=== PATIENT | male | born 1975 | race Caucasian/White ===

== ENCOUNTER 2019-08-03 05:30 | Day surgery (SDC) | payer OTHER, SELFPAY ==
[2019-06-28 07:56] VITALS: BMI 26.2
[2019-08-03] VITALS (7 sets, daily range): BP systolic 129–144; BP diastolic 7–91; PULSE 59–81; RESP 16–18; TEMP 36.1–36.2; O2SAT 95–100; BMI 25.9
[2019-08-03] MEDS: Lactated Ringers 1,000 ML 100 ML IV (06:36)
--- NOTE | 2019-08-03 07:08 | HP.PCM_ITS ---
Problem List (1) Right inguinal hernia Status: Acute History of Present Illness Date of Admission: 08/03/19 The patient is a 43 year old M with bulging in the right groin. Patient was found to have a right inguinal hernia. Patient reports no pain on the left side. Past Medical History Past Medical History (Chronic Problems): Chronic Problems (Last Updated 06/28/19 @ 07:54 by Stephanie Jett) Back problem (Chronic) Allergies (Chronic) Medical History: Medical History (Last Updated 06/28/19 @ 07:54 by Stephanie Jett) Back problem (Chronic) M53.9 Allergies (Chronic) T78.40XA Right inguinal hernia K40.90 Allergies No Known Allergies Allergy (Verified 07/27/19 11:00) Home Medications: Ambulatory Orders Medication Instructions Recorded NK 06/20/19 Surgical History: Surgical History (Last Updated 06/20/19 @ 16:56 by Lani Cabello) No history of previous surgery Surgical History: no surgical history Smoking Status: Never smoker Tobacco Use: Non-smoker - *Family History Maternal Family History: Family History (Last Updated 06/28/19 @ 07:54 by Stephanie Jett) Mother Asthma Cancer Father High cholesterol Review of Systems Constitutional: Denies: Anorexia, Chills, Fever HEENT: Denies: Difficulty Swallowing Cardiovascular: Denies: Chest Pain Respiratory: Denies: Cough, Shortness of Breath Gastrointestinal: Reports: - - Right groin bulging. Denies: Abdominal Pain, Nausea, Vomiting Skin: Denies: Dryness, Jaundice Neurological: Denies: Balance problems Psychiatric: Denies: Anxiety Hematologic/ Lymphatic: Denies: Anemia VTE Information - Inpt Only VTE Present on Admission: No VTE Mechan Device Prophylaxis: SCD's Patient Problems: Active and Suspected Problems (Last Updated 06/28/19 @ 07:54 by Stephanie Jett) Right inguinal hernia (Acute) - Physical Exam General: Alert, Oriented x3 HEENT: Atraumatic Neck: No JVD Lungs: Normal air movement Cardiovascular: Regular rate, Regular Rhythm Abdomen: Soft, Non Tender, Non-Distended, - - Reducible hernia in the right inguinal region Extremities: No clubbing Musculoskeletal: No Muscle Wasting Neurological: Cranial nerves II-XII grossly intact Psych/Mental Status: Normal Affect Vital Signs Temp Pulse Resp BP Pulse Ox 97 F L 59 L 16 130/7 H 100 10/10/19 05:52 08/03/19 05:52 08/03/19 05:52 08/03/19 05:52 08/03/19 05:52 Oxygen Delivery Method Room Air Weight: 197 lb 1.492 oz Body Mass Index (BMI) 25.9 Assessment/Plan All Active Problems (Last Updated 06/28/19 @ 07:54 by Stephanie Jett) Right inguinal hernia (Acute) 43-year-old male with right inguinal hernia The patient does have a right inguinal hernia. I discussed hernia repair with him in detail. I discussed laparoscopic robot-assisted hernia repair as well as open hernia repair. The patient would like to proceed with robotic inguinal hernia repair. I discussed the procedure in detail as well as the risks including not limited to bleeding, infection, chronic groin pain, spermatic cord injury, hernia recurrence. I also discussed repairing the contralateral side if there is a hernia present. The patient would like this done if necessary. Nash Oconnor MD Pager: [facility] [address] [place] [address] [place] [address] Office:
[2019-08-03] MEDS: Cefazolin 2 GM in 0.9% Normal Saline 100 ML IV (07:33)
[2019-08-03] MEDS: Bupivacaine 0.25% 30 ML Vial (09:30)
--- NOTE | 2019-08-03 09:53 | PCM.OPRPT ---
Problem List (1) Right inguinal hernia Status: Acute Report of Operation Date of Procedure: 08/03/19 Pre-Operative Diagnosis: Right inguinal hernia Post-Operative Diagnosis: Bilateral inguinal hernias Surgery/Procedure Performed:: Robotic assisted laparoscopic bilateral inguinal hernia repair with mesh Description of Surgical Findings:: Bilateral direct hernias Description of Procedure: Patient was brought back to the operating room and general anesthesia was induced. Abdomen was prepped and draped in usual sterile fashion. An incision was made superior to the umbilicus and the fascia was grasped and elevated. Veress needle was placed into the abdomen and a drop test was performed. The abdomen was then insufflated to 15 mmHg. The camera was placed in the abdomen. The patient appeared to have a right and left direct inguinal hernia. Next an 8 mm port was placed under direct visualization in the right lateral sidewall and left lateral sidewall. The patient was then placed in steep Trendelenburg position and the robot was docked. An incision was made in the peritoneum on the right groin and the dissection was carried inferiorly until the hernia was identified. The hernia contents were reduced. At that point there was a small burst of fluid. There was concern for possible contained diverticulum of the bladder. At this point a Figueroa catheter was placed in the bladder was inflated full of fluid. There is no fluid from this hernia content. Next the Figueroa catheter was placed to gravity and the bladder was drained. A pro-machine clothing replacer mesh was placed in the right groin and unfolded over the hernia defect. The peritoneum was reapproximated using a running 3-0V lock suture. There was a small defect in the peritoneum which was closed with a [id number] 4-0 Vicryl suture. The mesh was completely covered at the end of this portion of the procedure. Next attention was paid to the left side where there was another direct inguinal hernia. The peritoneum was scored with electrocautery and dissected inferiorly until the hernia sac was reduced. Next a piece of pro-machine clothing replacer mesh was unfolded and placed into the left groin to cover the hernia defect. The peritoneum was reapproximated using a running 3-0V lock suture. Next both groins were inspected and the peritoneum was completely covering the mesh bilaterally. The instruments were removed and the robot was undocked. The ports were removed and the air was allowed to escape from the abdomen. The incisions were anesthetized with Marcaine and closed with interrupted 4-0 Monocryl suture as well as Steri-Strips and bandages. Both testicles were checked at the end the case and were both present in the scrotum. Patient tolerated procedure well was brought to PACU in stable condition. Figueroa was removed at the end of the case. Grafts/Implants Used: Pro-machine clothing replacer mesh - Admit VTE Documentation VTE Present on Admission: No VTE Mechan Device Prophylaxis: SCD's
--- NOTE | 2019-08-03 09:54 | DCINST_ITS ---
Discharge Diet: Light diet - advance as tolerated Discharge Activity: Return to Normal Activity, May Not Drive - for 2-3 days or while taking narcotic pain meds., May Shower - with the bandage in place 1-2 days after surgery. Lifting Restrictions: 20 pounds for 4 weeks. Additional Activity Instructions:: Climbing stairs is fine, walking is encouraged. Sitting in bed may be uncomfortable. Sitting up using your lateral muscles (sitting up sideways) is usually more comfortable. Do not drive, work heavy equipment of sign legal documents for 24 hours. If your hernia repair was an ingunial repair, you may have scrotal swelling, an ice pack and/or athletic support can provide more comfort. Pain medications may cause nausea, you should typically eat light foods as you take your pain medications. Pain medications may also cause constipation. If you have difficulty with this, discuss with your doctor. Call your doctor if your incision/area has: Continuous Slow Oozing, Sudden Increased Bleeding, Increased Pain/ Swelling, Increased Redness, Foul Smelling Discharge Call your doctor if you observe: Fever of 101 or Higher Suture Line Care: Avoid Pulling/Pushing, Avoid Pinching/Bending Change Dressing in (Days):: 3 - Leave steri-strips for 1 week. May protect with a guaze bandaid. Cleanse incision/area with: Keep Dressing Clean & Dry Allergies/Adverse Reactions: Allergies No Known Allergies Allergy (Verified 07/27/19 11:00) Medications to take at Discharge Docusate Sodium [Colace] 100 mg PO BID 5 Days #10 cap 08/03/19 Oxycodone HCl/Acetaminophen [Percocet 5/325] 1 - 2 tab PO Q4H PRN PRN 4 Days #20 tab 08/03/19 The following prescriptions were given: Docusate Sodium [Colace] 100 mg PO BID 5 Days #10 cap Transmission Status: Sent to [facility] Oxycodone HCl/Acetaminophen [Percocet 5/325] 1 - 2 tab PO Q4H PRN PRN 4 Days #20 tab PRN Reason: Pain Transmission Status: Sent to [facility] Primary Care Physician: Rosendo Aviles DO [Primary Care Provider] - Test Results: Test results from this visit will be discussed in further detail at your follow- up appointment, if applicable. Please Follow Up With: Nash Oconnor MD When: Please call to schedule 2 week follow up appointment. [phone]
== END 2019-08-03 12:45 | disposition home or self-care (01) ==
LOC: SDC 05:34 → AC 05:36
PROVIDERS: Family Provider Family Medicine; PCP Family Medicine; Referring Provider Surgery; Visit Provider Surgery
PROC: (CPT 49650; principal; 2019-08-03 07:10)
DX: K40.20 Bilateral inguinal hernia, without obstruction or gangrene, not specified as recurrent (principal)
CPT/HCPCS: 00840; 49650; J7120; J2405

== ENCOUNTER → 2020-10-14 10:09 | Outpatient (CLI) | payer OTHER, SELFPAY ==
[2020-10-14 08:49] VITALS: BMI 22.3
[2020-10-14 12:37] LABS: Erythrocyte Sedimentation Rate 14 mm/hr (0-15)
[2020-10-14 12:38] LABS: Absolute Lymphocyte Count 1.25 X10^3/uL (0.83-4.51); Absolute Neutrophil Count 6.1 X10^3/uL (2.0-7.7); Basophil# 0.06 X10^3/uL; Basophil% 0.8 % (0-1); Eosinophil# 0.12 X10^3/uL; Eosinophils% 1.5 % (0-5); Hematocrit 45.5 % (40-54); Lymphocyte # 1.25 X10^3/ul (4.0); Lymphocyte % 15.8 % (19-41); Mean Corpuscular Hgb 28.3 pg (27.0-32.0); Mean Corpuscular Volume 85.8 fL (80-94); Mean Platelet Vol. 10.4 fl (6.2-12.0); Monocyte% 5.1 % (0-10); NRBC Flagged by Analyzer 0 % (0-5); Neutrophil # 6.06 X10^3/uL (2.7-7.7); Neutrophil % 76.5 % (47-70); Platelet Count 285 K/mm3 (150-450); RBC Distribution Width CV 15.4 % (11.6-14.6); RBC Distribution Width SD 44.3 fl (35.1-43.9); White Blood Count 7.9 K/mm3 (4.4-11.0)
[2020-10-14 13:01] LABS: AST(SGOT) 12 U/L (15-37); Alanine Aminotransfer ALT/SGPT 21 U/L (16-61); Albumin, Serum 3.7 g/dL (3.2-5.0); Alkaline Phosphatase 76 U/L (45-117); Anion Gap 6 (5-15); BUN 14 mg/dL (7-18); BUN/Creat Ratio 14.9 RATIO (10-20); Calcium,Total 8.9 mg/dL (8.5-10.1); Chloride 104 mmol/L (98-107); Creatinine, Serum 0.94 mg/dL (0.70-1.30); EST Glomerular Filtration Rate 93 mL/min (>60); Est Glom Filt Rate - Afr Amer 112 mL/min (>60); Globulin 3.8 g/dL (2.2-4.2); Glucose 93 mg/dL (74-106); Potassium 4.5 mmol/L (3.5-5.1); Protein, Total 7.5 g/dL (6.4-8.2); Sodium Level 138 mmol/L (136-145)
[2020-10-14 14:19] LABS: HIV - WCH Non-Reactive (Nonreactive)
[2020-10-14 17:42] LABS: Rheumatoid Factor < 10.0 IU/mL (<15)
[2020-10-15 14:26] LABS: ANTINUCLEAR ANTIBODIES DIRECT Negative (Negative)
[2020-10-17 02:22] LABS: Rapid Plasmin Reagin (RPR) NONREACTIVE (NONREACTIVE)
[2020-10-17 08:27] LABS: CCP IgG Antibodies 4 units (0-19)
== END ==
PROVIDERS: PCP Family Medicine; Visit Provider Internal Medicine
DX: M19.90 Unspecified osteoarthritis, unspecified site (principal); Z11.3 Encounter for screening for infections with a predominantly sexual mode of transmission
CPT/HCPCS: 36415; 80053; 85025; 85652; 86038; 86140; 86200; 86225; 86235; 86431; 86592; 86703

== ENCOUNTER → 2023-02-25 | Outpatient (CLI) | payer OTHER, SELFPAY ==
--- NOTE | 2023-02-25 10:58 | MRI_ITS ---
STUDY: MRA OF THE HEAD WITHOUT CONTRAST REASON FOR EXAM: Male, 47 years old. severe headaches TECHNIQUE: 3-D [id number] (TOF) imaging was performed with MIPs. The study was performed unenhanced. COMPARISON: None. FINDINGS: Normal bilateral petrous carotid arteries. Normal right cavernous carotid artery with a normal supraclinoid bifurcation. Normal left cavernous carotid artery with a normal supraclinoid bifurcation. Normal right A1 segments of the anterior cerebral artery. Normal left A1 segments of the anterior cerebral artery. Anterior communicating artery not visualized consistent with normal variant). Normal bilateral A2 segments of the anterior cerebral arteries. Normal right M1 and M2 segments of the middle cerebral arteries, with a normal M1 bifurcation. Normal left M1 and M2 segments of the middle cerebral arteries, with a normal M1 bifurcation. Right posterior communicating artery not visualized consistent with normal variant). Hypoplastic left posterior communicating artery consistent with normal variant. Normal bilateral vertebral arteries. Normal basilar artery with a normal basilar bifurcation. The visualized bilateral superior cerebellar (SCA) arteries are normal. Normal bilateral P1, P2 and visualized P3 segments of the posterior cerebral arteries. There is no demonstrated aneurysm of the [place]. There is no major vessel occlusion or hemodynamically significant stenosis. . MRI/MRA Head ONLY without Contrast IMPRESSION: Normal MRA of the head Electronically Signed: James Koch MD at 18:00 EDT ,
== END | disposition home or self-care (01) ==
PROVIDERS: PCP Family Medicine; Referring Provider Family Medicine; Visit Provider Family Medicine
DX: R51.9 Headache, unspecified (principal)
CPT/HCPCS: 70544

== ENCOUNTER → 2025-07-07 | Outpatient (CLI) | payer OTHER, SELFPAY ==
--- OUTSIDE RECORDS SUMMARY | 2025-07-07 09:00 | XMS RPT_ITS | CCD ---
Author Organization [facility] Care Team Providers Care Pv Design And Installation Technician Name Role Phone NACHO TASNEEM SANTO Attending Unavailable BROWN, TRACY R Primary Care Unavailable Brown, Tracy R Primary Care Provider [phone] Brown, Tracy R Attending Unavailable Brown, Tracy R Referring Unavailable Brown, Tracy R Primary Care Unavailable Brown, Tracy R Referring Unavailable Brown, Tracy R Primary Care Unavailable Brown, Tracy R Attending Unavailable Brown, Tracy R Primary Care Provider [phone] RAMSEY HESS Attending Unavailable CYNDI HESSI Referring Unavailable BROWN, TRACY Primary Care Unavailable RAMSEY HESS Attending Unavailable BROWN, TRACY Primary Care Unavailable BROWN DO, TRACY R Primary Care Physician GAYLA GUAMAN MD Attending Unavailable BROWN DO, TRACY R Primary Care Unavailable Gayla Guaman MD Primary Care Provider [phone] GAYLA GUAMAN Primary Care Unavailable DEBBIE MARSHALL Referring Unavailable DEBBIE MARSHALL Attending Unavailable Regine Beck Attending Unavailable GAYLA GUAMAN Referring Unavailable GAYLA GUAMAN Primary Care Unavailable Medications Completed/Discontinued Medications Medication Drug Class(es) Dates Sig (Normalized) Sig (Original) gadobutrol (Gadavist) injection 9 mL (1 source) Start: 04-02-2023 End: 04-02-2023 gadobutrol (Gadavist) injection 9 mL polyethylene glycol 3350 119459 mg / potassium chloride 2970 mg / sodium bicarbonate 6740 mg / sodium chloride 5860 mg / sodium sulfate 49093 mg powder for oral solution (1 source) Osmotic Laxative Start: 08-27-2023 End: 08-27-2023 peg 3350-Electrolytes (GOLYTELY) 236-22.74-6.74 -5.86 gram suspension Take 4,000 mL by mouth one time only for 1 dose. 1 Each 0 08/27/2023 08/27/2023 Comment on above: Take 4,000 mL by evan th one time only for 1 dose. Problems Problem Classification Problem Date Documented Da te Episodic/Chronic Headache; including migraine (3 sources) Other headache syndrome; Translations: [Headache] Onset: 02-17-2023 Episodic Headache; including migraine (3 sources) Headache; including migraine; Translations: [Headache, unspecified] Onset: 03-02-2023 Other screening for suspected conditions (not mental disorders or infectious disease) (6 sources) Patient encounter status; Translations: [Encounter for screening for malignant neoplasm of colon] Onset: 09-27-2023 08-27-2023 Episodic Results Test Name Value Interpretation Reference Range [facility]OS[facility] Colonoscopy[facility] 09[facility]-2023 Colonoscopy [facility] Gastrointestinal Endoscopy Patient Name: Belkis Mccabe Procedure Date: 09/27/2023 12:35 PM Date of : 1975 Admit Type: Outpatient Age: 48 Gender: Male Note Status: Finalized Procedure: Colonoscopy Indications: Screening for colorectal malignant neoplasm Providers: Debbie Marshall MD Patient Profile: Refer to note in patient chart for documentation of history and physical. Last Colonoscopy: none. The patient's first colonoscopy is today. Referring Physician: Debbie Marshall MD (Referring MD) Medicines: Midazolam 8 mg IV, Fentanyl 100 micrograms IV, Diphenhydramine 50 mg IV Complications: No immediate complications. Requesting Provider: Procedure: Pre-Anesthesia Assessment: - Prior to the procedure, a History and Physical was performed, and patient medications and allergies were reviewed. The patient is competent. The risks and benefits of the procedure and the sedation options and risks were discussed with the patient. All questions were answered and informed consent was obtained. Patient identification and proposed procedure were verified by the physician in the pre-procedure area. Mental Status Examination: alert and oriented. Airway Examination: normal oropharyngeal airway and neck mobility. Respiratory Examination: clear to auscultation. CV Examination: normal. Prophylactic Antibiotics: The patient does not require prophylactic antibiotics. Prior Anticoagulants: The patient has taken no anticoagulant or antiplatelet agents. ASA Grade Assessment: II - A patient with mild systemic disease. After reviewing the risks and benefits, the patient was deemed in satisfactory condition to undergo the procedure. The anesthesia plan was to use moderate sedation / analgesia (conscious sedation). Immediately prior to administration of medications, the patient was re-assessed for adequacy to receive sedatives. The heart rate, respiratory rate, oxygen saturations, blood pressure, adequacy of pulmonary ventilation, and response to care were monitored throughout the procedure. The physical status of the patient was re-assessed after the procedure. After I obtained informed consent, the scope was passed under direct vision. Throughout the procedure, the patient's blood pressure, pulse, and oxygen saturations were monitored continuously. The Colonoscope was introduced through the anus and advanced to the cecum, identified by the appendiceal orifice, ileocecal valve and palpation. The colonoscopy was performed without difficulty. The patient tolerated the procedure well. The quality of the bowel preparation was suboptimal. There was still retained fecal material which required lavage and aspiration to visualize the correa adequately. This was done, but took some time, however, the correa were visualized adequately. The cecum and the rectum were photographed. Moderate Sedation: The administration of moderate sedation was initiated at 12:46 PM. Moderate (conscious) sedation was personally administered by the endoscopist. The following parameters were monitored: oxygen saturation, heart rate, blood pressure, respiratory rate, EKG, adequacy of pulmonary ventilation, and response to care. Total physician intraservice time was 26 minutes. Findings: The perianal and digital rectal examinations were normal. Non-bleeding internal hemorrhoids were found. Impression: - Non-bleeding internal hemorrhoids. - No specimens collected. Recommendation: - Repeat colonoscopy in 10 years for screening purposes. - Return to primary care physician PRN. - Patient has a contact number available for emergencies. The signs and symptoms of potential delayed complications were discussed with the patient. Return to normal activities tomorrow. Written discharge instructions were provided to the patient. - Continue present medications. - Resume previous diet. Procedure Code(s): --- Professional --- G0121, Colorectal cancer screening; colonoscopy on individual not meeting criteria for high risk 74959, Moderate sedation; each additional 15 minutes intraservice time G0500, Moderate sedation services provided by the same physician or other qualified health manager long term care performing a gastrointestinal endoscopic service that sedation supports, requiring the presence of an independent trained observer to assist in the monitoring of the patient's level of consciousness and physiological status; initial 15 minutes of intra-service time; patient age 5 years or older (additional time may be reported with 23817, as appropriate) Diagnosis Code(s): --- Professional --- K64.8, Other hemorrhoids Z12.11, Encounter for screening for malignant neoplasm of colon CPT copyright 2020 [employer]. All rights reserved. The codes documented in this report are preliminary and upon black and white printer operator review may be revised to meet curre (more content not included)... Normal [facility] HISTORY PHYSICALon HISTORY PHYSICAL HNO ID: [id number] Author: Debbie Marshall MD Service: General Surgery Author Type: Physician Type: HANDP Filed: 09/27/2023 12:04 PM Note Text: HISTORY AND PHYSICAL Belkis Mccabe 1975 REFERRING PHYSICIAN: Gayla Guaman MD CHIEF COMPLAINT: Consult (colonoscopy) HPI: The patient is a 47 year old male referred for endoscopy. Belkis notes no colon complaints. Patient denies any change in bowel habits, weight changes, blood in stools, black tarry stools or abdominal pain. Denies family history of colon issues. The patient notes no upper GI complaints. Belkis has not undergone prior endoscopy. PAST MEDICAL HISTORY PAST MEDICAL HISTORY Diagnosis Date Back pain Headaches PAST SURGICAL HISTORY PAST SURGICAL HISTORY Procedure Laterality Date INGUINAL HERNIA REPAIR HX Right [facility] PAST SURGICAL HISTORY OF Left knee CURRENT MEDICATIONS No current outpatient medications on file. No current facility-administere d medications for this visit. ALLERGIES: Patient has no known allergies. PERSONAL HISTORY: SOCIAL HISTORY Social History Tobacco Use Smoking status: Never Smokeless tobacco: Never Vaping Use Vaping Use: Never used Substance Use Topics Alcohol use: Never Drug use: Never FAMILY HISTORY: FAMILY HISTORY FAMILY HISTORY Problem Relation Age of Onset Asthma Mother other (cancer multiple melanoma) Mother Hyperlipidemia Father REVIEW OF SYMPTOMS: The review of systems data was entered by the nurse and reviewed by pr Nursing Notes: Zoey Mancilla LPN 08/27/2023 3:09 PM Signed REVIEW OF SYSTEMS: General: The patient denies fatigue, denies weight loss, denies weight gain, denies feeling hot, and denies feelings of cold. Eyes: The patient denies glaucoma, denies eye injury/surgery, wears glasses or contacts. Ear/Nose/Throat: The patient denies allergies, denies hayfever, denies ear infections, and denies bloody noses. Cardiovascular: The patient denies chest pain, denies heart disease, denies high blood pressure,denies cardiac stent, denies prior heart attack, denies irregular heart beat, denies high cholesterol, denies poor circulation, denies heart failure, other cardiac issues, denies claudication, denies cold feet, denies peripheral arterial stent. Respiratory: The patient denies tuberculosis, denies pneumonia, denies frequent cough, denies pulmonary embolism, denies shortness of breath, and denies coughing up blood. Gastrointestinal: The patient denies difficulty swallowing, denies acid reflux, denies ulcers, denies vomiting, denies jaundice/hepatitis, denies gallbladder problems, denies black or tarry stools, denies hemorrhoids, denies bleeding from rectum, denies diverticulitis, denies constipation, denies diarrhea, denies loss of stool control, and denies hernias. Kidney/Bladder: The patient denies kidney stones, denies urine infections, and denies bloody urine. Skin: The patient denies a history of skin cancer, denies bleeding/changing moles, and denies a history of skin rash. Neurologic: The patient denies a history of epilepsy/convulsions , notes headaches, denies head/spinal injuries, and denies stroke/TIA. Psychiatric: The patient denies psychiatric medications, denies depression, and denies voices, denies substance abuse. Endocrine: The patient denies thyroid disorders, denies diabetes, and denies hormonal problems. Hematologic: The patient denies a history of bruising, denies bleeding, and denies anemia, denies blood clots. Infections: The patient denies a history of measles and mumps, denies rheumatic fever, and denies sexually transmitted diseases. Musculoskeletal: The patient notes back pain/injury, denies back problems, denies sciatica, denies knee/foot trouble, denies arthritis, or denies gout. When was patient's last Mammogram screening? N/A Last Colonoscopy: none Zeoy Mancilla LPN I have confirmed and edited as necessary, the PFSH and ROS obtained by others. Regine Beck PA-C PHYSICAL EXAMINATION: General: The patient is 47 year old male, well nourished, well hydrated in no acute distress. The patient is oriented to time, place, and person. VITALS: Blood pressure 142/70, pulse 83, temperature 36.1 ?C (96.9 ?F), height 185.4 cm (6' 1), weight 94.7 kg (208 lb 12.8 oz), SpO2 97 %. Body mass index is 27.55 kg/m?. HEENT: Normal cephalic, ataumatic, pupils are equally round, sclera are anicteric, mucous membranes are moist, oropharynx is clear. Neck has no masses, asymmetry or lymphadenopathy. Respiratory: Clear to auscultation and percussion. Normal respiratory excursion and pattern. Cardiac: Examination is regular rate and rhythm. Normal S1/S2 Abdominal exam: Soft, nontender, with no palpable masses. No hepatosplenomegaly. No palpable hernias. Extremities: no clubbing, cyanosis or edema. No adenopathy. LABORATORY VALUES: As Noted RADIOLOGIC STUDIES: As Noted Assessment IMPRESSION: (more content not included)... Normal [facility] NURSING PROGon 09-27-2023 NURSING PROG HNO ID: [id number] Author: Mariaa Powers RN Service: ? Author Type: Registered Nurse Type: Nursing Progress Note Filed: 09/27/2023 1:23 PM Note Text: Patient arrived laying on left side. Patient does not appear to be in any pain at this time and denies such at this time. Abdomen appears to be nondistended and soft to palpation. Patient encouraged to belch and pass gas as needed. Normal [facility] CNOVon 08-27-2023 CNOV Office Visit (SWS) BELKIS MCCABE ([id number]) 1975 M Date Time Provider Department 08/27/23 3:00 PM REGINE BECK During your visit today, we recorded the following information about you: Temperature Pulse Blood pressure Weight 96.9 degrees 83/minute 142/70 94.7 kg Height 1.854 m Zoey Mancilla LPN 08/27/2023 3:09 PM Signed REVIEW OF SYSTEMS: General: The patient denies fatigue, denies weight loss, denies weight gain, denies feeling hot, and denies feelings of cold. Eyes: The patient denies glaucoma, denies eye injury/surgery, wears glasses or contacts. Ear/Nose/Throat: The patient denies allergies, denies hayfever, denies ear infections, and denies bloody noses. Cardiovascular: The patient denies chest pain, denies heart disease, denies high blood pressure,denies cardiac stent, denies prior heart attack, denies irregular heart beat, denies high cholesterol, denies poor circulation, denies heart failure, other cardiac issues, denies claudication, denies cold feet, denies peripheral arterial stent. Respiratory: The patient denies tuberculosis, denies pneumonia, denies frequent cough, denies pulmonary embolism, denies shortness of breath, and denies coughing up blood. Gastrointestinal: The patient denies difficulty swallowing, denies acid reflux, denies ulcers, denies vomiting, denies jaundice/hepatitis, denies gallbladder problems, denies black or tarry stools, denies hemorrhoids, denies bleeding from rectum, denies diverticulitis, denies constipation, denies diarrhea, denies loss of stool control, and denies hernias. Kidney/Bladder: The patient denies kidney stones, denies urine infections, and denies bloody urine. Skin: The patient denies a history of skin cancer, denies bleeding/changing moles, and denies a history of skin rash. Neurologic: The patient denies a history of epilepsy/convulsions , notes headaches, denies head/spinal injuries, and denies stroke/TIA. Psychiatric: The patient denies psychiatric medications, denies depression, and denies voices, denies substance abuse. Endocrine: The patient denies thyroid disorders, denies diabetes, and denies hormonal problems. Hematologic: The patient denies a history of bruising, denies bleeding, and denies anemia, denies blood clots. Infections: The patient denies a history of measles and mumps, denies rheumatic fever, and denies sexually transmitted diseases. Musculoskeletal: The patient notes back pain/injury, denies back problems, denies sciatica, denies knee/foot trouble, denies arthritis, or denies gout. When was patient's last Mammogram screening? N/A Last Colonoscopy: none ELIF Castano Amanda, PA-C 09/24/2023 2:13 PM Signed HISTORY AND PHYSICAL Belkis Mccabe 1975 REFERRING PHYSICIAN: Galya Guaman MD CHIEF COMPLAINT: Consult (colonoscopy) HPI: The patient is a 47 year old male referred for endoscopy. Belkis notes no colon complaints. Patient denies any change in bowel habits, weight changes, blood in stools, black tarry stools or abdominal pain. Denies family history of colon issues. The patient notes no upper GI complaints. Belkis has not undergone prior endoscopy. PAST MEDICAL HISTORY Diagnosis Date Back pain Headaches PAST SURGICAL HISTORY Procedure Laterality Date INGUINAL HERNIA REPAIR HX Right [facility] PAST SURGICAL HISTORY OF Left knee No current outpatient medications on file. No current facility-administere d medications for this visit. ALLERGIES: Patient has no known allergies. PERSONAL HISTORY: Social History Tobacco Use Smoking status: Never Smokeless tobacco: Never Vaping Use Vaping Use: Never used Substance Use Topics Alcohol use: Never Drug use: Never FAMILY HISTORY: FAMILY HISTORY Problem Relation Age of Onset Asthma Mother other (cancer multiple melanoma) Mother Hyperlipidemia Father REVIEW OF SYMPTOMS: The review of systems data was entered by the nurse and reviewed by pr Nursing Notes: Zoey Mancilla LPN 08/27/2023 3:09 PM Signed REVIEW OF SYSTEMS: General: The patient denies fatigue, denies weight loss, denies weight gain, denies feeling hot, and denies feelings of cold. Eyes: The patient denies glaucoma, denies eye injury/surgery, wears glasses or contacts. Ear/Nose/Throat: The patient denies allergies, denies hayfever, denies ear infections, and denies bloody noses. Cardiovascular: The patient denies chest pain, denies heart disease, denies high blood pressure,denies cardiac stent, denies prior heart attack, denies irregular heart beat, denies high cholesterol, denies poor circulation, denies heart failure, other cardiac issues, denies claudication, denies cold feet, denies peripheral arterial stent. Respiratory: The patient denies tuberculosis, denies pneumonia, denies frequent cough, denies pulmonary embolism, denies short (more content not included)... Normal [facility] 08-27-2023 CNPN Telephone (GENSWS) BELKIS MCCABE ([id number]) 1975 M Date Time Provider Department 08/27/23 REGINE BECK GENMONES During your visit today, we recorded the following information about you: Sarah Higginbotham 08/27/2023 3:38 PM Signed 09/27/2023 COLON ASC Please see pended order Sarah Higginbotham 08/31/2023 11:34 AM Signed Patient scheduled with Dr. Marshall please see pended order Sarah Higginbotham Macaroni Press Operator Allergies As of Date: 08/27/2023 (No Known Allergies) Date Reviewed: 08/27/2023 Reviewed by: Regine Beck PA-C - Fully Assessed Reason for Visit: 09/27/2023 COLON ASC [Other] Primary Visit Diagnosis:Special screening for malignant neoplasms, colon [Z12.11] Order(s):COLONOSCOPY SCREENING [GI51] Order #: [id number] FUTURE Problem List As Of Date: 08/27/2023 (None) Encounter Status:Closed by DEBBIE MARSHALL on 08/31/23 [facility] .Auto Diffon 08-07-2023 Basophil, Absolute 0.1 10 3/mcL Normal 0.0-0.2 [facility] ([place]) Comment on above: Performed By: #### C MP, CBC, ANEU, ADIFF, LIPID, GFR #### [address] [address] Basophils/100 WBC (Bld) 1.1 % Normal 0.0-2.5 [facility] ([place]) Comment on above: Performed By: #### C MP, CBC, ANEU, ADIFF, LIPID, GFR #### [address] [address] Eosinophil, Absolute 0.1 10 3/mcL Normal 0.0-0.4 [facility] ([place]) Comment on above: Performed By: #### C MP, CBC, ANEU, ADIFF, LIPID, GFR #### [address] [address] Eosinophils/100 WBC (Bld) 1.8 % Normal 0.0-7.0 [facility] ([place]) Comment on above: Performed By: #### C MP, CBC, ANEU, ADIFF, LIPID, GFR #### [address] [address] Lymphocyte, Absolute 1.4 10 3/mcL Normal 0.8-3.9 [facility] ([place]) Comment on above: Performed By: #### C MP, CBC, ANEU, ADIFF, LIPID, GFR #### [address] [address] Lymphocytes/100 WBC (Bld) 23.9 % Normal 10.0-50.0 [facility] ([place]) Comment on above: Performed By: #### C MP, CBC, ANEU, ADIFF, LIPID, GFR #### [address] [address] Monocyte, Absolute 0.4 10 3/mcL Normal 0.2-1.0 [facility] ([place]) Comment on above: Performed By: #### C MP, CBC, ANEU, ADIFF, LIPID, GFR #### [address] [address] Monocytes/100 WBC (Bld) 7.2 % Normal 1.7-13.0 [facility] ([place]) Comment on above: Performed By: #### C MP, CBC, ANEU, ADIFF, LIPID, GFR #### [address] [address] Neutrophils/100 WBC (Bld) 66.0 % Normal 37.0-80.0 [facility] ([place]) Comment on above: Performed By: #### C MP, CBC, ANEU, ADIFF, LIPID, GFR #### [address] [address] .GFRon 08-07-2023 GFR 82 ml/min/1.73sqm Normal [facility] ([place]) Comment on above: Result Comment: GFR Population mean for , Non- Americans Ages 20-29 = 116 mL/min/1.73 sq.m. Ages 30-39 = 107 mL/min/1.73 sq.m. Ages 40-49 = 99 mL/min/1.73 sq.m. Ages 50-59 = 93 mL/min/1.73 sq.m. Ages 60-69 = 85 mL/min/1.73 sq.m. Ages 70+ = 75 mL/min/1.73 sq.m. Chronic Kidney Disease: Less than 60 mL/min/1.73 square meters End Stage Renal Disease: Less than 15 mL/min/1.73 square meters Performed By: #### C MP, CBC, ANEU, ADIFF, LIPID, GFR #### [address] [address] GFR Non- 68 ml/min/1.73sqm Normal [facility] ([place]) Comment on above: Result Comment: GFR Population mean for , Non- Americans Ages 20-29 = 116 mL/min/1.73 sq.m. Ages 30-39 = 107 mL/min/1.73 sq.m. Ages 40-49 = 99 mL/min/1.73 sq.m. Ages 50-59 = 93 mL/min/1.73 sq.m. Ages 60-69 = 85 mL/min/1.73 sq.m. Ages 70+ = 75 mL/min/1.73 sq.m. Chronic Kidney Disease: Less than 60 mL/min/1.73 square meters End Stage Renal Disease: Less than 15 mL/min/1.73 square meters Performed By: #### C MP, CBC, ANEU, ADIFF, LIPID, GFR #### [address] [address] .NEUABSon 08-07-2023 Neutrophil, Absolute 3.9 10 3/mcL Normal 2.9-6.2 [facility] ([place]) Comment on above: Performed By: #### C MP, CBC, ANEU, ADIFF, LIPID, GFR #### [address] [address] CBCon 08-07-2023 Erythrocyte distribution width (RBC) [Ratio] 13.8 % Normal 11.5-14.5 [facility] ([place]) Comment on above: Performed By: #### C MP, CBC, ANEU, ADIFF, LIPID, GFR #### [address] [address] Hematocrit (Bld) [Volume fraction] 43.4 % Normal 42.0-52.0 [facility] ([place]) Comment on above: Performed By: #### C MP, CBC, ANEU, ADIFF, LIPID, GFR #### [address] [address] Hgb 14.2 G/dL Normal 14.0-18.0 [facility] ([place]) Comment on above: Performed By: #### C MP, CBC, ANEU, ADIFF, LIPID, GFR #### [address] [address] MCH (RBC) [Entitic mass] 27.1 pg Normal 27.0-31.2 [facility] ([place]) Comment on above: Performed By: #### C MP, CBC, ANEU, ADIFF, LIPID, GFR #### [address] [address] MCHC 32.7 G/dL Normal 31.8-35.4 [facility] ([place]) Comment on above: Performed By: #### C MP, CBC, ANEU, ADIFF, LIPID, GFR #### [address] [address] MCV (RBC) [Entitic vol] 82.9 fL Normal 80.0-94.0 [facility] ([place]) Comment on above: Performed By: #### C MP, CBC, ANEU, ADIFF, LIPID, GFR #### [address] [address] Platelet 236 10 3/mcL Normal 130-400 [facility] ([place]) Comment on above: Performed By: #### C MP, CBC, ANEU, ADIFF, LIPID, GFR #### [address] [address] Platelet mean volume (Bld) [Entitic vol] 8.0 fL Normal 7.4-10.4 [facility] ([place]) Comment on above: Performed By: #### C MP, CBC, ANEU, ADIFF, LIPID, GFR #### [address] [address] RBC 5.24 10 6/mcL Normal 4.04-6.13 [facility] ([place]) Comment on above: Performed By: #### C MP, CBC, ANEU, ADIFF, LIPID, GFR #### [place] [id number] WBC 6.0 10 3/mcL Normal 4.6-10.8 [facility] ([place]) Comment on above: Performed By: #### C MP, CBC, ANEU, ADIFF, LIPID, GFR #### [address] [address] CMPon 08-07-2023 Albumin Level 4.0 G/dL Normal 3.5-5.0 [facility] ([place]) Comment on above: Performed By: #### C MP, CBC, ANEU, ADIFF, LIPID, GFR #### [address] [address] Albumin/Globulin [Mass ratio] 1.3 {ratio} Normal 1.1-2.5 [facility] ([place]) Comment on above: Performed By: #### C MP, CBC, ANEU, ADIFF, LIPID, GFR #### [address] [address] ALP [Catalytic activity/Vol] 62 U/L Normal 40-135 [facility] ([place]) Comment on above: Performed By: #### C MP, CBC, ANEU, ADIFF, LIPID, GFR #### [address] [address] ALT [Catalytic activity/Vol] 75 U/L High 16-63 [facility] ([place]) Comment on above: Performed By: #### C MP, CBC, ANEU, ADIFF, LIPID, GFR #### [address] [address] AST [Catalytic activity/Vol] 33 U/L Normal 10-40 [facility] ([place]) Comment on above: Performed By: #### C MP, CBC, ANEU, ADIFF, LIPID, GFR #### [address] [address] Bili Total 0.6 mg/dL Normal 0.2-1.0 [facility] ([place]) Comment on above: Result Comment: Use of this assay is not recommended for patients undergoing treatment with eltrombopag due to the potential for falsely elevated results. Performed By: #### C MP, CBC, ANEU, ADIFF, LIPID, GFR #### [address] [address] BUN/Creatinine Ratio 14 ratio Normal 7-27 [facility] ([place]) Comment on above: Performed By: #### C MP, CBC, ANEU, ADIFF, LIPID, GFR #### [address] [address] Calcium [Mass/Vol] 8.4 mg/dL Normal 8.4-10.2 [facility] ([place]) Comment on above: Performed By: #### C MP, CBC, ANEU, ADIFF, LIPID, GFR #### [address] [address] Chloride [Moles/Vol] 104 mmol/L Normal 98-107 [facility] ([place] Comment on above: Performed By: #### C MP, CBC, ANEU, ADIFF, LIPID, GFR #### [address] [address] CO2 [Moles/Vol] 30 mmol/L High 22-29 [facility] ([place] Comment on above: Performed By: #### C MP, CBC, ANEU, ADIFF, LIPID, GFR #### [address] [address] Creatinine [Mass/Vol] 1.16 mg/dL Normal 0.70-1.30 [facility] ([place]) Comment on above: Performed By: #### C MP, CBC, ANEU, ADIFF, LIPID, GFR #### [address] [address] Electrolyte Balance 8.0 mEq/L Normal 4.0-15.0 [facility] ([place]) Comment on above: Performed By: #### C MP, CBC, ANEU, ADIFF, LIPID, GFR #### [address] [address] Globulin 3.0 G/dL Normal [facility] ([place] Comment on above: Performed By: #### C MP, CBC, ANEU, ADIFF, LIPID, GFR #### [address] [address] Glucose [Mass/Vol] 90 mg/dL Normal 70-105 [facility] ([place]) Comment on above: Performed By: #### C MP, CBC, ANEU, ADIFF, LIPID, GFR #### [address] [address] Potassium [Moles/Vol] 4.6 mmol/L Normal 3.5-5.1 [facility] ([place]) Comment on above: Performed By: #### C MP, CBC, ANEU, ADIFF, LIPID, GFR #### [address] [address] Sodium [Moles/Vol] 142 mmol/L Normal 136-145 [facility] ([place]) Comment on above: Performed By: #### C MP, CBC, ANEU, ADIFF, LIPID, GFR #### [address] [address] Total Protein 7.0 G/dL Normal 6.4-8.2 [facility] ([place] Comment on above: Performed By: #### C MP, CBC, ANEU, ADIFF, LIPID, GFR #### [address] [address] Urea nitrogen [Mass/Vol] 16 mg/dL Normal 7-18 [facility] ([place] Comment on above: Performed By: #### C MP, CBC, ANEU, ADIFF, LIPID, GFR #### [place] [id number] [place] [address] LABORATORYOrdered By: SYSTEM SYSTEM on 08-07-2023 Albumin BCP dye [Mass/Vol] 4.0 G/dL Invalid Interpretation Code 3.5 - 5.0 G/dL AO ADM SS Albumin/Globulin [Mass ratio] 1.3 {ratio} Invalid Interpretation Code 1.1 - 2.5 ratio AO ADM SS ALP [Catalytic activity/Vol] 62 U/L Invalid Interpretation Code 40 - 135 U/L AO ADM SS ALT With P-5'-P [Catalytic activity/Vol] 75 U/L Invalid Interpretation Code 16 - 63 U/L AO ADM SS AST With P-5'-P [Catalytic activity/Vol] 33 U/L Invalid Interpretation Code 10 - 40 U/L AO ADM SS Basophil, Absolute 0.1 103/mcL Invalid Interpretation Code 0.0 - 0.2 10^3/mcL AO Workflow SS Basophils/100 WBC (Bld) 1.1 % Invalid Interpretation Code 0.0 - 2.5 % AO Workflow SS Bilirubin [Mass/Vol] 0.6 mg/dL Invalid Interpretation Code 0.2 - 1.0 mg/dL AO ADM SS Comment on above: Interpretive Data: U se of this assay is not recommended for patients undergoing treatment with eltrombopag due to the potential for falsely elevated results. Calcium [Mass/Vol] 8.4 mg/dL Invalid Interpretation Code 8.4 - 10.2 mg/dL AO ADM SS Chloride [Moles/Vol] 104 mmol/L Invalid Interpretation Code 98 - 107 mmol/L AO ADM SS CO2 [Moles/Vol] 30 mmol/L Invalid Interpretation Code 22 - 29 mmol/L AO ADM SS Creatinine [Mass/Vol] 1.16 mg/dL Invalid Interpretation Code 0.70 - 1.30 mg/dL AO ADM SS Electrolyte Balance 8.0 mEq/L Invalid Interpretation Code 4.0 - 15.0 mEq/L AO ADM SS Eosinophil, Absolute 0.1 103/mcL Invalid Interpretation Code 0.0 - 0.4 10^3/mcL AO Workflow SS Eosinophils/100 WBC (Bld) 1.8 % Invalid Interpretation Code 0.0 - 7.0 % AO Workflow SS Erythrocyte distribution width (RBC) [Ratio] 13.8 % Invalid Interpretation Code 11.5 - 14.5 % AO Workflow SS GFR/1.73 sq M.predicted among blacks MDRD (S/P/Bld) [Vol rate/Area] 82 ml/min/1.73sqm Invalid Interpretation Code AO Chemistry S Comment on above: Interpretive Data: GFR Population mean for , Non- Americans Ages 20-29 = 116 mL/min/1.73 sq.m. Ages 30-39 = 107 mL/min/1.73 sq.m. Ages 40-49 = 99 mL/min/1.73 sq.m. Ages 50-59 = 93 mL/min/1.73 sq.m. Ages 60-69 = 85 mL/min/1.73 sq.m. Ages 70+ = 75 mL/min/1.73 sq.m. Chronic Kidney Disease: Less than 60 mL/min/1.73 square meters End Stage Renal Disease: Less than 15 mL/min/1.73 square meters GFR/1.73 sq M.predicted among non-blacks MDRD (S/P/Bld) [Vol rate/Area] 68 ml/min/1.73sqm Invalid Interpretation Code AO Chemistry S Comment on above: Interpretive Data: GFR Population mean for , Non- Americans Ages 20-29 = 116 mL/min/1.73 sq.m. Ages 30-39 = 107 mL/min/1.73 sq.m. Ages 40-49 = 99 mL/min/1.73 sq.m. Ages 50-59 = 93 mL/min/1.73 sq.m. Ages 60-69 = 85 mL/min/1.73 sq.m. Ages 70+ = 75 mL/min/1.73 sq.m. Chronic Kidney Disease: Less than 60 mL/min/1.73 square meters End Stage Renal Disease: Less than 15 mL/min/1.73 square meters Globulin 3.0 G/dL Invalid Interpretation Code AO ADM SS Glucose [Mass/Vol] 90 mg/dL Invalid Interpretation Code 70 - 105 mg/dL AO ADM SS Hematocrit (Bld) [Volume fraction] 43.4 % Invalid Interpretation Code 42.0 - 52.0 % AO Workflow SS Hemoglobin (Bld) [Mass/Vol] 14.2 G/dL Invalid Interpretation Code 14.0 - 18.0 G/dL AO Workflow SS Lymphocyte, Absolute 1.4 103/mcL Invalid Interpretation Code 0.8 - 3.9 10^3/mcL AO Workflow SS Lymphocytes/100 WBC (Bld) 23.9 % Invalid Interpretation Code 10.0 - 50.0 % AO Workflow SS MCH (RBC) [Entitic mass] 27.1 pg Invalid Interpretation Code 27.0 - 31.2 pg AO Workflow SS MCHC 32.7 G/dL Invalid Interpretation Code 31.8 - 35.4 G/dL AO Workflow SS MCV (RBC) [Entitic vol] 82.9 fL Invalid Interpretation Code 80.0 - 94.0 fL AO Workflow SS Monocyte, Absolute 0.4 103/mcL Invalid Interpretation Code 0.2 - 1.0 10^3/mcL AO Workflow SS Monocytes/100 WBC (Bld) 7.2 % Invalid Interpretation Code 1.7 - 13.0 % AO Workflow SS Neutrophil, Absolute 3.9 103/mcL Invalid Interpretation Code 2.9 - 6.2 10^3/mcL AO Workflow SS Neutrophils/100 WBC (Bld) 66.0 % Invalid Interpretation Code 37.0 - 80.0 % AO Workflow SS Platelet mean volume (Bld) [Entitic vol] 8.0 fL Invalid Interpretation Code 7.4 - 10.4 fL AO Workflow SS Platelets (Bld) [#/Vol] 236 103/mcL Invalid Interpretation Code 130 - 400 10^3/mcL AO Workflow SS Potassium [Moles/Vol] 4.6 mmol/L Invalid Interpretation Code 3.5 - 5.1 mmol/L AO ADM SS Protein [Mass/Vol] 7.0 G/dL Invalid Interpretation Code 6.4 - 8.2 G/dL AO ADM SS RBC (Bld) [#/Vol] 5.24 106/mcL Invalid Interpretation Code 4.04 - 6.13 10^6/mcL AO Workflow SS Sodium [Moles/Vol] 142 mmol/L Invalid Interpretation Code 136 - 145 mmol/L AO ADM SS Urea nitrogen [Mass/Vol] 16 mg/dL Invalid Interpretation Code 7 - 18 mg/dL AO ADM SS Urea nitrogen/Creatinine [Mass ratio] 14 ratio Invalid Interpretation Code 7 - 27 ratio AO ADM SS WBC (Bld) [#/Vol] 6.0 103/mcL Invalid Interpretation Code 4.6 - 10.8 10^3/mcL AO Workflow SS LABORATORYOrdered By: Jasper Suarez on 08-07-2023 Cholesterol [Mass/Vol] 177 mg/dL Invalid Interpretation Code 0 - 200 mg/dL AO ADM SS Comment on above: Interpretive Data: C holesterol Reference Interval: Less than 200 Desirable 200-239 Borderline high risk 240 and above High risk Cholesterol in HDL [Mass/Vol] 65 mg/dL Invalid Interpretation Code 40 - 60 mg/dL AO ADM SS Cholesterol in LDL [Mass/Vol] 104 mg/dL Invalid Interpretation Code 0 - 130 mg/dL AO ADM SS Triglyceride [Mass/Vol] 40 mg/dL Invalid Interpretation Code 0 - 150 mg/dL AO ADM SS Comment on above: Interpretive Data: T riglyceride Reference Interval: Less than 150 Normal 150-199 Borderline high risk 200-499 High risk 500 or higher Very high risk LIPIDon 08-07-2023 Cholesterol [Mass/Vol] 177 mg/dL Normal 0-200 [facility] ([place]) Comment on above: Result Comment: Chol esterol Reference Interval: Less than 200 Desirable 200-239 Borderline high risk 240 and above High risk Performed By: #### C MP, CBC, ANEU, ADIFF, LIPID, GFR #### [address] [address] Cholesterol in HDL [Mass/Vol] 65 mg/dL High 40-60 [facility] ([place]) Comment on above: Performed By: #### C MP, CBC, ANEU, ADIFF, LIPID, GFR #### [address] [address] Cholesterol in LDL [Mass/Vol] 104 mg/dL Normal 0-130 [facility] ([place]) Comment on above: Performed By: #### C MP, CBC, ANEU, ADIFF, LIPID, GFR #### [address] [address] Triglyceride [Mass/Vol] 40 mg/dL Normal 0-150 [facility] ([place]) Comment on above: Result Comment: Trig lyceride Reference Interval: Less than 150 Normal 150-199 Borderline high risk 200-499 High risk 500 or higher Very high risk Performed By: #### C MP, CBC, ANEU, ADIFF, LIPID, GFR #### [address] [address] 36on 04-05-2023 36 Patient notified of the below results. [employer] Normal [facility] 36 ----- Message from Ramsey Hess MD sent at 04/02/2023 4:44 PM EDT ----- normal Normal [facility] MR Brain WO and W contrast Susan Jordan 04-02-2023 Normal MRI examination of the brain without and with contrast. Report Dictated on Electronically Signed By: Harish García Electronically Signed Date/Time: 04/02/2023 2:01 PM EDT [facility] Patient Name: BELKIS MCCABE : 1975 Exam Date/Time: 04/02/2023 12:07 Procedure: MR BRAIN W AND WO CONTRAST Ordering Provider: HESS DMITRI Reason For Exam: Headache, chronic, new features or increased frequency MRI BRAIN WITHOUT AND WITH CONTRAST: CLINICAL INDICATION: Multiple exertional headaches TECHNIQUE: Multiplanar multi sequential MRI images of the brain were obtained pre and post intravenous administration of 9ml gadolinium based contrast. COMPARISON: None. FINDINGS: Ventricular system and Extra-axial spaces: Normal in size and morphology for the patient's age. No extracerebral collection with mass effect. Cerebral and cerebellar parenchyma: Normal. No focus of restricted diffusion. Brainstem: Normal. Sella turcica and pituitary: Normal. Vascular system: Normal signal void is noted within the major intracranial vessels. Paranasal sinuses: Mucosal polyp or retention cyst noted in the superior anterior left maxillary sinus. Otherwise, the visualized paranasal sinuses are clear. Mastoid air cells: Normal. Orbits: Normal. [facility] Harish García MD - 04/02/2023 Patient Name: BELKIS MCCABE : 1975 Exam Date/Time: 04/02/2023 12:07 Procedure: MR BRAIN W AND WO CONTRAST Ordering Provider: HESS DMITRI Reason For Exam: Headache, chronic, new features or increased frequency MRI BRAIN WITHOUT AND WITH CONTRAST: CLINICAL INDICATION: Multiple exertional headaches TECHNIQUE: Multiplanar multi sequential MRI images of the brain were obtained pre and post intravenous administration of 9ml gadolinium based contrast. COMPARISON: None. FINDINGS: Ventricular system and Extra-axial spaces: Normal in size and morphology for the patient's age. No extracerebral collection with mass effect. Cerebral and cerebellar parenchyma: Normal. No focus of restricted diffusion. Brainstem: Normal. Sella turcica and pituitary: Normal. Vascular system: Normal signal void is noted within the major intracranial vessels. Paranasal sinuses: Mucosal polyp or retention cyst noted in the superior anterior left maxillary sinus. Otherwise, the visualized paranasal sinuses are clear. Mastoid air cells: Normal. Orbits: Normal. IMPRESSION: Normal MRI examination of the brain without and with contrast. Report Dictated on Electronically Signed By: Harish García Electronically Signed Date/Time: 04/02/2023 2:01 PM EDT [facility] Study observation (narrative) [facility] MR Brain WO and W contrast I VOrdered By: Harish García on 04-02-2023 [facility] Work Phone: Office Visiton 03-01-2023 Follow-up visit [id number] Belkis Mccabe 1975 M Date Provider Department Center 03/01/2023 [id number] [facility] None No family history on file Level of Service:47616 MO OFFICE/OUTPATIENT NEW LOW MDM 30-44 MINUTES Reason for Visit and Comments: New Patient [542] Headache [52] - The patient states that 02/17/23 he started with headaches- no injury to the head. He states that he was doing extreme exercise and then ended up having an extreme headache. Since then has had constant headaches. Has headaches with orgasms. Normal [facility] Progress Noteon 03-01-2023 Progress Note Department of Neurological Sciences Impression: Diagnosis Plan 1. Nonintractable headache, unspecified chronicity pattern, unspecified headache type MR brain w and wo contrast Sedimentation rate, automated TSH Sedimentation rate, automated TSH Presents with new daily headache over the last 2 weeks that is worsened by physical exertion and orgasm. CTA/MRA noncontributory. Plan: Check ESR MRI brain If no secondary etiology is identified then may treat with naproxen prn prior to physical exertion/sexual intercourse. Orders Placed This Encounter Procedures MR brain w and wo contrast Standing Status: Future Standing Expiration Date: 03/01/2024 Sedimentation rate, automated Standing Status: Future Number of Occurrences: 1 Standing Expiration Date: 03/01/2024 TSH Standing Status: Future Number of Occurrences: 1 Standing Expiration Date: 03/01/2024 CHIEF COMPLAINT: Chief Complaint Patient presents with New Patient Headache The patient states that 02/17/23 he started with headaches- no injury to the head. He states that he was doing extreme exercise and then ended up having an extreme headache. Since then has had constant headaches. Has headaches with orgasms. HISTORY OF PRESENT ILLNESS: The patient is a 47 y.o. male without significant past medical history who presents with headaches. He reports that he was doing high density 7 minute workout on 02/17/2023 when he developed severe headache over his entire head that lasted for several minutes and then settled down to a constant discomfort over the left bahai that he rates as 1 out of 10 in severity and that is constant and nonthrobbing. He also recalls having significant worsening of headache immediately after orgasm, severe headache lasted for approximately 1 minute and then settled down. He is not aware of dietary, olfactory triggers. Headaches are typically relieved by sleep and rest. He affirms that he sleeps sleep and hydration. He has not used any as needed medication. His work-up included CT/CTA of the head and MRA of the head - no acute process or aneurysm was identified. He denies jaw claudication, transient visual obscurations, pain with valsalva, other focal neurological symptoms. Past Medical History: No past medical history on file. Past Surgical History: No past surgical history on file. Medications: No current outpatient medications on file. No current facility-administere d medications for this visit. Allergies: Patient has no known allergies. Social History: Social History Socioeconomic History Marital status: Unknown Spouse name: Not on file Number of children: Not on file Years of education: Not on file Highest education level: Not on file Occupational History Not on file Tobacco Use Smoking status: Never Smokeless tobacco: Never Vaping Use Vaping Use: Never used Substance and Sexual Activity Alcohol use: Never Drug use: Never Sexual activity: Not on file Other Topics Concern Not on file Social History Narrative Not on file Social Determinants of Health Financial Resource Strain: Not on file Food Insecurity: Not on file Transportation Needs: Not on file Physical Activity: Not on file Stress: Not on file Social Connections: Not on file Intimate Partner Violence: Not on file Housing Stability: Not on file Family History: No family history on file. REVIEW OF SYSTEMS: Positive for headache No fevers, significant weight loss, hearing loss, tinnitus, dysphagia, photosensitivity, visual disturbances, chest tightness, chest pain, shortness of breath, palpitations, abdominal pain, nausea, heat intolerance, dysuria, joint pain, muscle pain, imbalance, dizziness, seizures, confusion, anxiety, depression. PHYSICAL EXAM: Vitals: BP 138/77 (BP Location: Right arm, Patient Position: Sitting) Pulse 66 Ht 6' 1 (1.854 m) Wt 200 lb 9.6 oz (91 kg) BMI 26.47 kg/m? General: The patient was well developed, in no acute distress. HEENT: Normocephalic, atraumatic. Conjunctiva, lids, pupils, and irises clear. Oral mucosa is moist. Neck: Supple. No carotid bruits. Full range of motion. No nuchal rigidity or neck tenderness to palpation. Cardiovascular: Regular rate and rhythm. No murmurs. Arms and legs are warm and well-perfused. No clubbing, cyanosis or edema. Lungs: Clear to auscultation. Abdomen: Soft, non-tender, non-distended. Positive bowel sounds. Skin (Restricted to face and distal upper and lower extremities): Unremarkable. Musculoskeletal: No tenderness observed. Neurological Examination: Mental Status: Patient is currently awake, alert, and oriented to person, place, and time. Able to state the reason for today's visit and can recall events leading up to this visit. Speech is fluent without any evidence of dysphasia. Cranial Nerves: II Optic: Pupils equal and reactive. Visual ayala full. No papilledema appreciated on fun (more content not included)... Normal [facility] MRA Head ONLY without Contra patrizia 02-25-2023 MRA Head ONLY without Contrast [facility] Imaging Services [address] [place] [address] MRA Head ONLY without Contrast MR#: [id number] Acct: [id number] Name: ELIOTBELKIS CHAMORRO ZOYA Rep #: [id number] : 1975 M 47 From: James Koch MD PCP: Dr. Tracy Aviles DO Status: REG CLI Study: MRA Head ONLY without Contrast Date of Exam: 0 02/25/23 Exam# [id number] Ordering Dr: Tracy Aviles DO STUDY: MRA OF THE HEAD WITHOUT CONTRAST REASON FOR EXAM: Male, 47 years old. severe headaches TECHNIQUE: 3-D [id number] (TOF) imaging was performed with MIPs. The study was performed unenhanced. COMPARISON: None. FINDINGS: Normal bilateral petrous carotid arteries. Normal right cavernous carotid artery with a normal supraclinoid bifurcation. Normal left cavernous carotid artery with a normal supraclinoid bifurcation. Normal right A1 segments of the anterior cerebral artery. Normal left A1 segments of the anterior cerebral artery. Anterior communicating artery not visualized consistent with normal variant). Normal bilateral A2 segments of the anterior cerebral arteries. Normal right M1 and M2 segments of the middle cerebral arteries, with a normal M1 bifurcation. Normal left M1 and M2 segments of the middle cerebral arteries, with a normal M1 bifurcation. Right posterior communicating artery not visualized consistent with normal variant). Hypoplastic left posterior communicating artery consistent with normal variant. Normal bilateral vertebral arteries. Normal basilar artery with a normal basilar bifurcation. The visualized bilateral superior cerebellar (SCA) arteries are normal. Normal bilateral P1, P2 and visualized P3 segments of the posterior cerebral arteries. There is no demonstrated aneurysm of the [place] of [place]. There is no major vessel occlusion or hemodynamically significant stenosis. . MRI/MRA Head ONLY without Contrast IMPRESSION: Normal MRA of the head Electronically Signed: James Koch MD at 18:00 EDT , CC: Dr. Tracy Aviles DO Customer Service Voice: Signed Normal [facility] Internal Medicine Office Vis fatuma 02-18-2023 Internal Medicine Office Visit [facility] [address] [place] [address] [place] [address] OFFICE VISIT Date of Service: 02/18/23 MR#: [id number] Acct: [id number] Name: BELKIS MCCABE Rep #: [id number] : 1975 Provider: Dr. Tracy warner DO Age/Sex: 47/M Location: [facility] Status: Signed Intake Vital Signs 02/18/23 14:25 Height 6 ft 1 in Weight: 201 lb 8 oz BMI 26.6 BP 118/76 Blood Pressure Location Rt brachial Position Sitting Respiration 18 Pulse 73 Pulse Source Monitor Temp 95.6 F L Temp Source Temporal Pulse Oximetry (%) 97 Oxygen Delivery Method room air Intake Visit Reasons: [facility] ER FU Chief Complaint: E.R. follow up Is patient in pain?: No Allergies No Known Allergies Allergy (Verified 02/18/23 14:24) Nurse's Note: room 6 [facility] Medical History (Updated 02/18/23 @ 14:[address] Tracy Aviles, ) Allergies Back problem Right inguinal hernia Surgical History No history of previous surgery S/P bilateral inguinal hernia repair Family History Mother Asthma Cancer multiple myeloma Father High cholesterol Social History Smoking Status: Never smoker alcohol intake: never substance use type: does not use frequency: 5-6 times per week HPI HPI Chief Complaint: E.R. follow up Details: BELKIS MCCABE, is a 47 M who presents to the office today for a follow up appointment after being seen in the ER at [facility]. He had the worst headache he ever had while exercising at home. CT with contrast was negative and he had no neurological symptoms. ROS Const Constitutional: No body ache, chills, excessive sweating, fatigue, fever(s), frequent falls, headache(s), snoring, weakness, sleep problems or change in appetite Eyes Eyes: No blurry vision, change in vision, eye pain or Light sensitivity ENT ENT: No abnormal hearing, ear or mastoid pain, tinnitus, nasal congestion, headache(s), neck pain or sore throat Resp Respiratory: No cough, shortness of breath, snoring or wheezing Cardio Cardiology: No chest pain at rest, chest pain with exertion, excessive sweating, shortness of breath, dyspnea on exertion, lightheadedness, orthopnea or palpitations Gastro GI: No abdominal pain, change in bowel habits, constipation, cramping, diarrhea, Vomiting blood/hematemesis or vomiting Genitourinary Male: No burning urination, painful urination, urinary incontinence or blood in urine Musc Musculoskeletal: No abnormal gait, joint pain, back pain, limited range of motion, neck pain, numbness or tingling Skin Skin: No dry skin, redness, lesions, itchy eyes, rash or wounds Breast Breast: No change in breast shape, breast lump, breast pain, breast skin changes, breast swelling or nipple discharge Neuro Neurology: No abnormal gait, abnormal hearing, weakness, frequent falls, headache(s), numbness or tingling Psych Psychiatric: No anxiety, No change in appetite, No depression and No Thoughts of harming yourself/Others Endo Endocrine: No excessive sweating, fatigue, flushing, heat intolerance, increased thirst/drinking or increased hunger Aller/Imm Allergy/Immunologic: No itchy eyes, seasonal allergy symptoms, hives or wheezing Evin/Lymp Hematologic/Lymphati c: No easy bleeding, easy bruising or enlarged lymph nodes Exam Const General: cooperative and healthy appearing [facility] Head: normal to inspection Ears: hearing grossly normal bilaterally Nose: external nose normal Eyes General: appearance normal, both eyes and all related structures Neck Neck: normal visual inspection Resp Effort Inspection: normal respiratory effort Auscultation: Bilateral: Clear to Auscultation Cardio Rate: regular rate Rhythm: regular rhythm Skin General: no rashes or lesions noted Neuro General: patient oriented x3 Cranial Nerves: CN's II-XI intact bilaterally Speech: speech normal Gait: normal gait Coding Level of Care Code Off vis,est,level 3 Diagnoses Sudden onset of severe headache R51.9 Assessment and Plan Assessment and Plan (1) Sudden onset of severe headache: Status: Acute Plan: I explained that while CT would R/O ruptured aneurism, MRA is needed to R/O unruptured aneurisms--MRA ordered Orders: Orders MRA Head ONLY WITH Contrast Today R51.9 - Headache, unspecified 02/18/23 1454 Date Tracy Jesse Stefan DO [facility] Signature: Date (if applicable) CC: Normal [facility] Basic metabolic 2000 panelon 02-17-2023 Anion gap [Moles/Vol] 7 mmol/L Low 9-18 [facility] Comment on above: Order Comment: Speci men Type: BLOOD SPECIMEN Ordering Facility: [facility] Address: [address] [place] [address] Performed By: #### 2 4321-2 #### [facility] CLIA [id number] [address] [place] [address] [place] Calcium [Mass/Vol] 9.1 mg/dL Normal 8.5-10.2 [facility] Comment on above: Order Comment: Speci men Type: BLOOD SPECIMEN Ordering Facility: [facility] Address: [address] [place] [address] Performed By: #### 2 4321-2 #### [facility] CLIA [id number] [address] [place] Chloride [Moles/Vol] 104 mmol/L Normal 97-105 [facility] Comment on above: Order Comment: Speci men Type: BLOOD SPECIMEN Ordering Facility: [facility] Address: [address] [address] Performed By: #### 2 4321-2 #### [facility] CLIA [id number] 1 [place] [address] [place] CO2 [Moles/Vol] 26 mmol/L Normal 22-30 [facility] Comment on above: Order Comment: Speci men Type: BLOOD SPECIMEN Ordering Facility: [facility] Address: [address] [address] Performed By: #### 2 4321-2 #### [facility] CLIA [id number] [address] STATES OF [facility] Creatinine [Mass/Vol] 1.09 mg/dL Normal 0.73-1.22 [facility] Comment on above: Order Comment: Marcelo mayer Type: BLOOD SPECIMEN Ordering Facility: [facility] Address: [address] [address] Performed By: #### 2 4321-2 #### [facility] CLIA [id number] [address] OF [facility] ESTIMATED GLOMERULAR FILTRATION RATE 85 mL/min/1.73m??? Normal >=60 [facility] Comment on above: Order Comment: Marcelo mayer Type: BLOOD SPECIMEN Ordering Facility: [facility] Address: [address] [place] [address] Result Comment: Carlie mated Glomerular Filtration Rate (eGFR) is calculated using the 2020 CKD-EPI creatinine equation. This equation utilizes serum creatinine, sex, and age as parameters. The creatinine assay has traceable calibration to isotope dilution-mass spectrometry. Refer to KDIGO guidelines for clinical interpretation. In patients with unstable renal function, e.g. those with acute kidney injury, the eGFR may not accurately reflect actual GFR. Performed By: #### 2 4321-2 #### [facility] CLIA [id number] [address] OF [facility] Glucose [Mass/Vol] 105 mg/dL High 74-99 [facility] Comment on above: Order Comment: Marcelo leyla Type: BLOOD SPECIMEN Ordering Facility: [facility] Address: [address] [place] [address] Result Comment: The [place] Diabetes Association (ADA) provides guidance for cutoff values for fasting glucose and random glucose. The ADA defines fasting as no caloric intake for at least 8 hours. Fasting plasma glucose results between 100 to 125 mg/dL indicate increased risk for diabetes (prediabetes). Fasting plasma glucose results greater than or equal to 126 mg/dL meet the criteria for diagnosis of diabetes. In the absence of unequivocal hyperglycemia, results should be confirmed by repeat testing. In a patient with classic symptoms of hyperglycemia or hyperglycemic crisis, random plasma glucose results greater than or equal to 200 mg/dL meet the criteria for diagnosis of diabetes. Reference: Standards of Medical Care in Diabetes 2016, [place] [employer] Association. Diabetes Care. 2016.39(Suppl 1). Performed By: #### 2 4321-2 #### [facility] CLIA [id number] [address] STATES OF [facility] Potassium [Moles/Vol] 4.3 mmol/L Normal 3.7-5.1 [facility] Comment on above: Order Comment: Speci men Type: BLOOD SPECIMEN Ordering Facility: [facility] Address: [address] [address] Performed By: #### 2 4321-2 #### [facility] CLIA [id number] [address] Sodium [Moles/Vol] 137 mmol/L Normal 136-144 [facility] Comment on above: Order Comment: Speci men Type: BLOOD SPECIMEN Ordering Facility: [facility] Address: [address] [address] Performed By: #### 2 4321-2 #### [facility] CLIA [id number] [address] Urea nitrogen [Mass/Vol] 13 mg/dL Normal 9-24 [facility] Comment on above: Order Comment: Speci men Type: BLOOD SPECIMEN Ordering Facility: [facility] Address: [address] [address] Performed By: #### 2 4321-2 #### [facility] CLIA [id number] [address] OF [place] CBC W Auto Differential pane l (Bld)on 02-17-2023 Basophils (Bld) [#/Vol] 0.05 10*3/uL Normal <0.11 [facility] Comment on above: Order Comment: Speci men Type: BLOOD SPECIMEN Ordering Facility: [facility] Address: [address] [address] Performed By: #### 5 7021-8 #### [facility] CLIA [id number] [address] Basophils/100 WBC (Bld) 0.9 % Normal [facility] Comment on above: Order Comment: Speci men Type: BLOOD SPECIMEN Ordering Facility: [facility] Address: [address] [address] Performed By: #### 5 7021-8 #### [facility] CLIA [id number] [address] Differential cell count method Nom (Bld) Auto Normal [facility] Comment on above: Order Comment: Speci men Type: BLOOD SPECIMEN Ordering Facility: [facility] Address: [address] [place] [address] Performed By: #### 5 7021-8 #### [facility] CLIA [id number] [address] Eosinophils (Bld) [#/Vol] 0.07 10*3/uL Normal <0.46 [facility] Comment on above: Order Comment: Speci men Type: BLOOD SPECIMEN Ordering Facility: [facility] Address: [address] [address] Performed By: #### 5 7021-8 #### [facility] CLIA [id number] [address] Eosinophils/100 WBC (Bld) 1.2 % Normal [facility] Comment on above: Order Comment: Speci men Type: BLOOD SPECIMEN Ordering Facility: [facility] Address: [address] [address] Performed By: #### 5 7021-8 #### [facility] CLIA [id number] [address] Erythrocyte distribution width (RBC) [Ratio] 13.2 % Normal 11.5-15.0 [facility] Comment on above: Order Comment: Speci men Type: BLOOD SPECIMEN Ordering Facility: [facility] Address: [address] [place] [address] Performed By: #### 5 7021-8 #### [facility] CLIA [id number] [address] [place] Hematocrit (Bld) [Volume fraction] 45.0 % Normal 39.0-51.0 [facility] Comment on above: Order Comment: Speci men Type: BLOOD SPECIMEN Ordering Facility: [facility] Address: [address] [place] [address] Performed By: #### 5 7021-8 #### [facility] CLIA [id number] [address] [place] Hemoglobin (Bld) [Mass/Vol] 14.6 g/dL Normal 13.0-17.0 [facility] Comment on above: Order Comment: Speci men Type: BLOOD SPECIMEN Ordering Facility: [facility] Address: [address] [place] [address] Performed By: #### 5 7021-8 #### [facility] CLIA [id number] [address] [place] Immature granulocytes (Bld) [#/Vol] 0.03 10*3/uL Normal <0.10 [facility] Comment on above: Order Comment: Speci men Type: BLOOD SPECIMEN Ordering Facility: [facility] Address: [address] [place] [address] Performed By: #### 5 7021-8 #### [facility] CLIA [id number] [address] OF [place] Immature granulocytes/100 WBC (Bld) 0.5 % Normal [facility] Comment on above: Order Comment: Speci men Type: BLOOD SPECIMEN Ordering Facility: [facility] Address: [address] [place] [address] Performed By: #### 5 7021-8 #### [facility] CLIA [id number] [address] OF [place] Lymphocytes (Bld) [#/Vol] 1.15 10*3/uL Normal 1.00-4.00 [facility] Comment on above: Order Comment: Speci men Type: BLOOD SPECIMEN Ordering Facility: [facility] Address: [address] [address] Performed By: #### 5 7021-8 #### [facility] CLIA [id number] [address] Lymphocytes/100 WBC (Bld) 20.1 % Normal [facility] Comment on above: Order Comment: Speci men Type: BLOOD SPECIMEN Ordering Facility: [facility] Address: [address] [address] Performed By: #### 5 7021-8 #### [facility] CLIA [id number] [address] MCH (RBC) [Entitic mass] 27.7 pg Normal 26.0-34.0 [facility] Comment on above: Order Comment: Speci men Type: BLOOD SPECIMEN Ordering Facility: [facility] Address: [address] [address] Performed By: #### 5 7021-8 #### [facility] CLIA [id number] [address] MCHC (RBC) [Mass/Vol] 32.4 g/dL Normal 30.5-36.0 [facility] Comment on above: Order Comment: Speci men Type: BLOOD SPECIMEN Ordering Facility: [facility] Address: [address] [place] [address] Performed By: #### 5 7021-8 #### [facility] CLIA [id number] [address] MCV (RBC) [Entitic vol] 85.2 fL Normal 80.0-100.0 [facility] Comment on above: Order Comment: Speci men Type: BLOOD SPECIMEN Ordering Facility: [facility] Address: [address] [place] [address] Performed By: #### 5 7021-8 #### [facility] CLIA [id number] [address] Monocytes (Bld) [#/Vol] 0.39 10*3/uL Normal <0.87 [facility] Comment on above: Order Comment: Speci men Type: BLOOD SPECIMEN Ordering Facility: [facility] Address: [address] [place] [address] Performed By: #### 5 7021-8 #### [facility] CLIA [id number] [address] Monocytes/100 WBC (Bld) 6.8 % Normal [facility] Comment on above: Order Comment: Speci men Type: BLOOD SPECIMEN Ordering Facility: [facility] Address: [address] [address] Performed By: #### 5 7021-8 #### [facility] CLIA [id number] [address] Neutrophils (Bld) [#/Vol] 4.02 10*3/uL Normal 1.45-7.50 [facility] Comment on above: Order Comment: Speci men Type: BLOOD SPECIMEN Ordering Facility: [facility] Address: [address] [address] Performed By: #### 5 7021-8 #### [facility] CLIA [id number] [address] Neutrophils/100 WBC (Bld) 70.5 % Normal [facility] Comment on above: Order Comment: Speci men Type: BLOOD SPECIMEN Ordering Facility: [facility] Address: [address] [place] [address] Performed By: #### 5 7021-8 #### [facility] CLIA [id number] [address] OF [place] Nucleated RBC (Bld) [#/Vol] 10*3/uL Normal <0.01 [facility] Comment on above: Order Comment: Speci men Type: BLOOD SPECIMEN Ordering Facility: [facility] Address: [address] [place] [address] Performed By: #### 5 7021-8 #### [facility] CLIA [id number] [address] OF [facility] Nucleated RBC/100 WBC (Bld) [Ratio] 0.0 /100 WBC Normal [facility] Comment on above: Order Comment: Speci men Type: BLOOD SPECIMEN Ordering Facility: [facility] Address: [address] [place] [address] Performed By: #### 5 7021-8 #### [facility] CLIA [id number] [address] OF [place] Platelet mean volume (Bld) [Entitic vol] 10.1 fL Normal 9.0-12.7 [facility] Comment on above: Order Comment: Speci men Type: BLOOD SPECIMEN Ordering Facility: [facility] Address: [address] [place] [address] Performed By: #### 5 7021-8 #### [facility] CLIA [id number] [address] Platelets (Bld) [#/Vol] 241 10*3/uL Normal 150-400 [facility] Comment on above: Order Comment: Speci men Type: BLOOD SPECIMEN Ordering Facility: [facility] Address: [address] [place] [address] Performed By: #### 5 7021-8 #### [facility] CLIA [id number] [address] OF [place] RBC (Bld) [#/Vol] 5.28 10*6/uL Normal 4.20-6.00 [facility] Comment on above: Order Comment: Speci men Type: BLOOD SPECIMEN Ordering Facility: [facility] Address: [address] [address] Performed By: #### 5 7021-8 #### [facility] CLIA [id number] [address] [place] WBC (Bld) [#/Vol] 5.71 10*3/uL Normal 3.70-11.00 [facility] Comment on above: Order Comment: Speci men Type: BLOOD SPECIMEN Ordering Facility: [facility] Address: [address] [place], [place] [id number] Performed By: #### 5 7021-8 #### [facility] CLIA [id number] [address] [id number] [facility] CT BRAIN WO IVCONon 02-18-[address] BRAIN WO IVCON * * *Final Report* * * DATE OF EXAM: Feb 17 2023 10:12AM [facility] 0504 - CT BRAIN WO IVCON / PROCEDURE REASON: Headache, sudden, severe * * * * Physician Interpretation * * * * EXAMINATION: CT BRAIN WO IVCON CLINICAL HISTORY: Exercise. Sudden onset of headache. TECHNIQUE: Serial axial images without IV contrast were obtained from the vertex to the foramen magnum. MQ: CTBWO_3 CT Radiation dose: Integrated Dose-Length Product (DLP) for this visit = 750 mGy*cm CT Dose Reduction Employed: Iterative recon COMPARISON: None. RESULT: Business Operations Specialist (topogram) images: No additional findings. Post-operative change: None. Acute change: No evidence of an acute infarct or other acute parenchymal process. Hemorrhage: No evidence of acute intracranial hemorrhage. ECASS hemorrhagic transformation score: Not Applicable Mass Lesion / Mass Effect: There is no evidence of an intracranial mass or extraaxial fluid collection. No significant mass effect. Chronic change: None apparent. Parenchyma: There is no significant volume loss. The brain parenchyma is otherwise within normal limits for age. Ventricles: The ventricles are within normal limits of size and configuration for age. Paranasal sinuses and skull base: The visualized paranasal sinuses are grossly clear. The skull base and imaged soft tissues are unremarkable. IMPRESSION: No CT evidence of acute intracranial abnormalities. Customer Service Voice: [facility] Transcribe Date/Time: Feb 17 2023 10:16A Dictated by : JAIRO STORM MD This examination was interpreted and the report reviewed and electronically signed by: JAIRO STORM MD on Feb 17 2023 10:22AM EST [id number] CN Normal [facility] CTA HEAD W IVCONon 3 CTA HEAD W IVCON * * *Final Report* * * DATE OF EXAM: Feb 17 2023 10:50AM [facility] 0022 - CTA HEAD W IVCON / PROCEDURE REASON: Headache, sudden, severe * * * * Physician Interpretation * * * * EXAMINATION: CTA HEAD W IVCON HISTORY: Headache, sudden, severe TECHNIQUE: Spiral high resolution axial images were obtained through the head following bolus administration of intravenous contrast for CT angiography. 3D maximum intensity projection images were created, reviewed and archived . MQ: CTAB_4 Contrast: 100 mL Omnipaque [address] Radiation dose: Integrated Dose-Length Product (DLP) for this visit = 304 mGy*cm. CT Dose Reduction Employed: Automated exposure control(AEC) and iterative recon COMPARISON: Same day CT head RESULT: BRAIN: Evaluation of the individual slices of the CTA demonstrates no evidence of an acute stroke. ASPECT Score = 10 Spot Sign Presence: Not Applicable Spot Sign Number: Not Applicable ARTERIOGRAM: Anterior Circulation: Intracranial ICAs are patent. The ACAs and MCAs are patent. No significant stenosis. No aneurysm. Vertebrobasilar Circulation: The intradural vertebral arteries are patent. The basilar artery is patent. commercial loan specialist are patent. SCAs are patent. No significant stenosis. No aneurysm. The major dural sinuses and draining veins are grossly patent. Business Operations Specialist (topogram) images: No additional findings. IMPRESSION: Unremarkable intracranial CTA. No aneurysm. Arterial blood flow was measured to detect acute large vessel occlusion by computer aided detection software: Not Performed. Concordance between software and imaging review: Not Applicable. Customer Service [facility]: [facility] Transcribe Date/Time: Feb 17 2023 11:06A Dictated by : XIMENA HOWARD MD This examination was interpreted and the report reviewed and electronically signed by: XIMENA HOWARD MD on Feb 17 2023 11:09AM EST [id number] CN Normal [facility] ED NOTEon 02-17-2023 ED NOTE HNO ID: [id number] Author: Karl Calderón RN Service: Emergency Medicine Author Type: Registered Nurse Type: ED Notes Filed: 02/17/2023 10:36 AM Note Text: CT Notified Normal [facility] ED NOTE HNO ID: [id number] Author: Karl Calderón RN Service: Emergency Medicine Author Type: Registered Nurse Type: ED Notes Filed: 02/17/2023 9:49 AM Note Text: Per Dr Kapoor. CT notified to perform the CT Brain WO IVCON. Then W IVCON when labs result. Normal [facility] ED NOTE HNO ID: [id number] Author: Alessia Crouch RN Service: Emergency Medicine Author Type: Registered Nurse Type: ED Notes Filed: 02/17/2023 9:10 AM Note Text: CT notified that pt is ready for scan. Normal [facility] ED NOTE HNO ID: [id number] Author: Spring Madrigal RN Service: ? Author Type: Registered Nurse Type: ED Notes Filed: 02/17/2023 8:55 AM Note Text: Bed: 15-ED Expected date: Expected time: Means of arrival: Comments: TRIAGE Normal [facility] ED PROV NOTEon 02-17-2023 ED PROV NOTE HNO ID: [id number] Author: Koby Coyne MD Service: Emergency Medicine Author Type: Resident Type: ED Provider Notes Filed: 02/18/2023 10:13 AM Note Text: Attestation signed by Tasneem Kapoor MD at 02/18/2023 11:19 AM Attending Note I evaluated the patient and personally participated in the oleary components. I agree with the resident's findings and plan as documented and have discussed the case and management of the patient's care with the resident. ED Course as of 02/18/23 1119 Tasneem Kapoor's Documentation Wed Feb 17, 2023 0916 Patient presents for evaluation of sudden severe headache that occurred while he was lifting weights and working out. He was doing his usual workout. He was lifting weights when he had the sudden onset of intense pain which she describes as the worst headache he has ever had in his life. This lasted for a few minutes and then started to slowly improve and is now down to about 2 or 4% of what it was. He denies any numbness tingling or weakness no difficulty with bowel or bladder control no difficulty with speaking. No visual changes no lightheadedness or dizziness. No passing out. On examination 155/89 pulse is 67 respirate is 12 pulse ox 100% on room air not hypoxic afebrile well-developed nourished male no acute distress nontoxic appearance he is awake alert and oriented x3 and appropriate. His GCS is 15 and there is no focal motor or sensory deficits cranial nerves II through XII grossly intact lungs are clear and equal heart regular rate and rhythm without murmurs gallops rubs medical decision making patient presents for evaluation of sudden onset of intense headache. Differential would include acute mass shift or bleed in the brain. Could also be musculoskeletal. He is neurologically intact his headache is improving we will get CT and CT angiograms. [address] at this time no one answers. 1121 IMPRESSION: Unremarkable intracranial CTA. No aneurysm. Arterial blood flow was measured to detect acute large vessel occlusion by computer aided detection software: Not Performed. Concordance between software and imaging review: Not Applicable. Clinical Impressions as of 02/18/23 1119 Other headache syndrome Signature: Tasneem Kapoor MD Date: 02/18/2023 Time: 11:19 AM ED Provider Note Patient Name: Belkis Mccabe : 1975 SERVICE DATE: 02/17/23 History Patient presents with: Headache: Ambulatory to triage. 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 Sx resolved upon arrival. Worse pain of my life axo4. PERRLA. Patient is a 47-year-old male presenting to ED with sudden onset headache. Patient has no significant past medical history including no history of headaches. Patient endorsed that around 6:50 AM, patient was exercising high intensity in his home when he developed a sudden onset headache. He endorses the headache was 10/10, holoacranial, was severe enough to bring him down to his knees. He endorsed that it lasted for around a minute. The headache abated and is now currently at a level of 1/10 and is still holocranial. He denied recently hitting his head or neck. He endorsed that he exercises every day and that this was not a new exercise. He denies having any lightheadedness, dizziness, numbness or weakness to either of his arms or legs, slurred speech, neck stiffness, nausea or vomiting. He denies being on blood thinners. He endorsed that despite his blood pressure being in the 150s, his blood pressure is usually in the 120s. No past medical history on file. No past surgical history on file. No family history on file. Social History Tobacco Use - Smoking status: Not on file - Smokeless tobacco: Not on file Substance and Sexual Activity - Alcohol use: Not on file - Drug use: Not on file - Sexual activity: Not on file ALLERGIES No Known Allergies Review of Systems Constitutional: Negative for activity change, appetite change, chills, diaphoresis, fatigue and fever. HENT: Negative for congestion, postnasal drip, rhinorrhea, sinus pressure and sinus pain. Eyes: Negative for photophobia, pain, discharge, redness and itching. Respiratory: Negative for cough, shortness of breath and wheezing. Cardiovascular: Negative for chest pain, palpitations and leg swelling. Gastrointestinal: Negative for abdominal distention, abdominal pain, anal bleeding, constipation, diarrhea, nausea and vomiting. Endocrine: Negative for cold intolerance and heat intolerance. Genitourinary: Negative for decreased urine volume, dysuria, frequency, hematuria and urgency. Musculoskeletal: Negative for arthralgias, back pain, gait problem, myalgias, neck pain and neck stiffness. Skin: Neg (more content not included)... Normal [facility] SARS-CoV-2 (COVID-19) RT-PCR on 11-03-2021 SARS-CoV-2 (COVID-19) RNA TINO+probe Ql (Unsp spec) Negative Normal [facility] Comment on above: Order Comment: JEANETTE CHAMBERS SICK COVID 1130 Result Comment: NEGA TIVE: SARS-CoV-2 RNA was NOT detected - Interpretation: A negative result indicates severe acute respiratory syndrome coronavirus 2 (SARS-CoV-2) RNA was not detected. Negative results do not preclude SARS-CoV-2 infection and should not be used as the sole basis for patient management decisions. Negative results must be combined with clinical observations, patient history, and epidemiological information. The possibility of a false negative result should be considered if the patient's recent exposures or clinical presentation suggest that SARS-CoV-2 infection is possible, and diagnostic tests for other causes of illness are negative. If SARS-CoV-2 infection is still suspected, re-testing should be considered. - Method: Real-time reverse transcriptase PCR amplification for the qualitative detection of the ORF1 a/b non-structural region that is unique to SARS-CoV-2 and a conserved region in the structural protein envelope E-gene for nguyen-Sarbecovirus detection using the Courtney SARS-CoV-2 assay on the [employer] Courtney 6800 System. - Comment: This test has received FDA Emergency Use Authorization (EUA) and has been verified by [facility]. This test is only authorized for the duration of the public health emergency declaration and the circumstances that exist to justify the authorization of the emergency use of in vitro diagnostic tests for the detection of SARS-CoV-2 virus and/or diagnosis of COVID-19 infection under section 564(b)(1) of the Act, 21 U.S.C. 360bbb-3(b)(1), unless the authorization is terminated or revoked sooner. This test has not been FDA cleared or approved. Results should be used in conjunction with clinical findings, and should not form the sole basis for a diagnosis or treatment decision. - Fact Sheets for this EUA can be found at the following links: For Healthcare Providers: www.fda.gov/media/994804/download For Patients: www.fda.gov/media/848472/download - Reference Value: Negative Performed By: #### C OVID #### [address] [address] COURTNEY SARS CoV-2 RT PCR Not detected Normal [facility] Comment on above: Order Comment: JEANETTE CHAMBERS SICK COVID 1130 Performed By: #### C OVID #### [facility] [address] [place], [place] [id number] Vital Signs Date Time Vital Sign Value Performing Clinician Arleen langston 09-27-2023 13:49-0500 Heart rate 60 /min Debbie Marshall MD Work Phone: [facility] 09-27-2023 13:49-0500 Respiratory rate 16 /min Debbie Marshall MD Work Phone: [facility] 09-27-2023 13:49-0500 SaO2% (BldA) [Mass fraction] 95 % Debbie Marshall MD Work Phone: [facility] 09-27-2023 13:39-0500 Diastolic blood pressure 65 mm[Hg] Debbie Marshall MD Work Phone: [facility] 09-27-2023 13:39-0500 Systolic blood pressure 116 mm[Hg] Debbie Marshall MD Work Phone: [facility] 09-27-2023 12:19-0500 Body temperature 97.7 [degF] Debbie Marshall MD Work Phone: [facility] 08-27-2023 15:07-0400 Body height 185.4 cm Regine Argusville PA-C Work Phone: [facility] 08-27-2023 15:07-0400 Body temperature 96.91 [degF] Regine Ebony PA-C Work Phone: [facility] 08-27-2023 15:07-0400 Body weight 94.71 kg Regine Argusville PA-C Work Phone: [facility] 08-27-2023 15:07-0400 Diastolic blood pressure 70 mm[Hg] Regine Ebony PA-C Work Phone: [facility] 08-27-2023 15:07-0400 Heart rate 83 /min Regine Ebony PA-C Work Phone: [facility] 08-27-2023 15:07-0400 SaO2% (BldA) [Mass fraction] 97 % Regine Argusville PA-C Work Phone: [facility] 08-27-2023 15:07-0400 Systolic blood pressure 142 mm[Hg] Regine Ebony PA-C Work Phone: [facility] 03-01-2023 14:29-0400 Body height 185.4 cm Ramsey Hess MD Work Phone: [facility] 03-01-2023 14:29-0400 Body mass index (BMI) [Ratio] 26.47 kg/m2 Ramsey Hess MD Work Phone: [facility] 03-01-2023 14:29-0400 Body weight 90.99 kg Ramsey Hess MD Work Phone: [facility] [employer] 03-01-2023 14:29-0400 Diastolic blood pressure 77 mm[Hg] Ramsey Hess MD Work Phone: [facility] 03-01-2023 14:29-0400 Heart rate 66 /min Ramsey Hess MD Work Phone: [facility] 03-01-2023 14:29-0400 Systolic blood pressure 138 mm[Hg] Ramsey Hess MD Work Phone: [facility] [employer] Encounters Encounter Date Encounter Type Care Provider Facility Start: 09-27-2023 End: 09-27-2023 ambulatory GAYLA GUAMAN Facility:[facility] Start: 09-27-2023 End: 09-27-2023 Subsequent hospital visit by physician Debbie Marshall MD Work Phone: Ambulatory Surgery Comment on above: Special screening fo r malignant neoplasms, colon [Z12.11] Start: 08-27-2023 End: 08-27-2023 ambulatory Regine Beck Facility:[facility] Start: 08-27-2023 End: 08-27-2023 Patient encounter procedure Regine Beck PA-C Work Phone: General Surgery Comment on above: Encounter for screen ing for malignant neoplasm of colon (Primary Dx) Start: 08-07-2023 End: 08-08-2023 ambulatory GAYLA GUAMAN MD Facility:[facility] Start: 08-07-2023 End: 08-07-2023 Patient encounter procedure GAYLA GUAMAN MD [facility] Start: 04-02-2023 End: 04-03-20[facility] Start: 04-02-2023 End: 04-02-2023 Subsequent hospital visit by physician Ramsey Hess MD Work Phone: [facility] Comment on above: Nonintractable heada shashi, unspecified chronicity pattern, unspecified headache type Start: 03-01-2023 End: 03-01-2023 ambulatory RAMSEY HESS [facility] Start: 03-01-2023 End: 03-01-2023 Office outpatient new 30 minutes Ramsey Hess MD Work Phone: [facility] Comment on above: Nonintractable heada shashi, unspecified chronicity pattern, unspecified headache type (Primary Dx) Start: 02-25-2023 End: 02-25-2023 ambulatory [facility] Facility:[facility] Start: 02-18-2023 End: 02-18-2023 ambulatory [facility] Facility[facility] Start: 02-17-2023 End: 02-17-2023 Emergency department patient visit [facility] Facility:[facility] Procedures Date Procedure Procedure Detail Performing Clinician Start: 09-27-2023 Colonoscopy flx dx w /collj spec when pfrmd Debbie Marshall MD Work Phone: Start: 09-27-2023 Colonoscopy Debbie Marshall MD Work Phone: Start: 04-02-2023 Mri brain brain stem w/o w/contrast material Ramsey Hess MD Work Phone: Plan of Treatment Date Care Activity Detail Author Start: 2026 Zoster Vaccines (1 o f 2) Zoster Vaccines (1 of 2) [facility] Start: 02-17-2026 Diabetes Screening Diabetes Screenin g [facility] Start: 08-20-2025 DTaP/Tdap/Td Vaccine s (2 - Td or Tdap) DTaP/Tdap/Td Vaccines (2 - Td or Tdap) [facility] Start: 08-20-2025 Urine microalbumin profile DTaP,Tdap,Td Vaccine (2 - Td or Tdap) [facility] Start: 09-27-2024 Colonoscopy Colonoscopy [facility] Start: 09-27-2024 Colorectal Cancer Screening Colorectal Cancer Screening [facility] Start: 06-25-2023 Covid-19 Vaccine () Covid-19 Vaccine () [facility] Start: 05-03-2023 End: 05-03-2023 Patient encounter procedure [facility] Start: 03-01-2023 End: 03-01-2024 Erythrocyte sedimentation rate Sedimentation rate, automated Lab Routine Nonintractable headache, unspecified chronicity pattern, unspecified headache type Expected: 03/01/2023 (Approximate), Expires: 03/01/2024 [facility] Comment on above: Expected: 03/01/2023 (Approximate), Expires: 03/01/2024 Start: 03-01-2023 End: 03-01-2024 MR Brain WO and W contrast IV MR brain w and wo contrast Imaging Routine Nonintractable headache, unspecified chronicity pattern, unspecified headache type Expected: 03/01/2023, Expires: 03/01/2024 [facility] Work Phone: Comment on above: Expected: 03/01/2023 , Expires: 03/01/2024 Start: 03-01-2023 End: 03-01-2024 Thyrotropin [Units/volume] in Serum or Plasma TSH Lab Routine Nonintractable headache, unspecified chronicity pattern, unspecified headache type Expected: 03/01/2023 (Approximate), Expires: 03/01/2024 [facility] Comment on above: Expected: 03/01/2023 (Approximate), Expires: 03/01/2024 Start: 10-25-2022 Depression Assessment Depression Ass essment [facility] Start: 07-28-2022 COVID-19 Vaccine (4 - Booster for Moderna series) COVID-19 Vaccine (4 - Booster for Moderna series) [facility] Start: 2021 Cologuard (FIT-DNA) Cologuard (FIT-D NA) [facility] Start: 2021 Colonoscopy Colonoscopy [facility] Start: 2021 Colorectal Cancer Screening Colorectal Cancer Screening [facility] Start: [address] Colonography [facility] Start: 11-21-2021 Fecal Occult Blood Fecal Occult Bloo d [facility] Start: 2021 Sigmoidoscopy Sigmoidoscopy [facility] Start: 2011 Lipid 1996 panel - Serum or Plasma Lipid Screening [facility] Start: 1994 Diabetes mellitus screening Diabetes Screening [facility] Start: 1994 Hepatitis C screening Hepatitis C [facility] Start: 1994 Hepatitis C Screening Hepatitis C [facility] Start: 1994 HIV Screening HIV Screening [facility] Start: 1988 Depression Screening Depression Scre ening [facility] Start: 1977 MMR Vaccines (1 of 1 - Standard series) MMR Vaccines (1 of 1 - Standard series) [facility] Start: 1976 Hepatitis B Vaccine (1 of 3 - 3-dose series) Hepatitis B Vaccine (1 of 3 - 3-dose series) [facility] Start: 1976 Hepatitis B Vaccines (1 of 3 - 3-dose series) Hepatitis B Vaccines (1 of 3 - 3-dose series) [facility] Start: 1976 HIV screening HIV Screening [facility] Start: 1976 Lipid panel Lipid Panel [facility] Start: 1976 Screening for malign ant neoplasm of colon [facility] OUTSIDE PROCEDURE SCAN OUTSIDE P ROCEDURE SCAN Procedures Ordered: 04/01/2023 [facility] Comment on above: Ordered: 04/01/2023 [facility] Immunizations Immunization Date Immunization Notes Care Provider Fa rebecca 08-20-2015 tetanus toxoid, redu yoko diphtheria toxoid, and acellular pertussis vaccine, adsorbed GAYLA GUAMAN MD [facility] Payers Date Payer Category Payer Self-pay 2023 Unknown [id number] 2022 Unknown [id number] 2022 Unknown [id number] 1976 Unknown [id number] Unknown [id number] Unknown [id number] Social History Date Type Detail Facility Start: 03-01-2023 End: 08-26-2023 Tobacco smoking status NHIS Never smoked tobacco [facility] Start: 03-01-2023 End: 08-26-2023 Tobacco use and exposure Smokeless tobacco non-user [facility] Start: 03-01-2023 End: 09-27-2023 Alcohol intake Lifetime non-drinker (finding) [facility] Start: 1975 Sex Assigned At Not on file [facility] Start: 02-19-2023 End: 04-02-2023 Exposure to SARS-CoV-2 (event) Not sure [facility] Start: 03-01-2023 End: 09-27-2023 History of Social function [facility] Start: 03-01-2023 End: 09-27-2023 Tobacco use panel [facility] Sex Assigned At Sex [facility] Clinical Notes 03-01-2023 to 09-27-2023 Mariaa Powers RN - 09/27/2023 1:23 PM Debbie Doss MD - 09/27/2023 12:45 PM Debbie Doss MD - 09/27/2023 12:45 PM Regine Ken PA-C - 08/27/2023 3:14 PM EDT Note Date & Type Note Facility 09-27-2023 Nurse Note Patient arrived laying on left side. Patient does not appear to be in any pain at this time and denies such at this time. Abdomen appears to be nondistended and soft to palpation. Patient encouraged to belch and pass gas as needed. documented in this encounter [facility] 09-27-2023 History and physical note UPDATED PROCEDURAL SEDATION HISTORY AND PHYSICAL EXAMINATION SERVICE DATE: 09/27/2023 SERVICE TIME: 12:01 PHYSICAL EXAM MUST BE COMPLETED ON ADMISSION PROCEDURE: colonoscopy, possible biopsies Procedure Indications: screening for colon cancer The History and Physical (completed in the past 30 days) has been reviewed and the patient has been examined. The contents accurately reflect the patient's condition with the following additions or revisions since the H&P was completed. ASA Class: ASA Class:: Patient with mild systemic disease Examination indicates no changes. AIRWAY: Airway Visualization of [place]vula: Yes Mouth opening greater than 2 fingerbreadths: Yes Neck Full Range of Motion: Yes LUNGS: Lungs clear to auscultation CARDIAC: Regular rhythm,Regular rate Provisional Diagnosis/Treatment Plan: colonoscoyp, possible biopsies SEDATION GOAL: Moderate This H&P can be found in the Electronic Medical Record . SIGNATURE: Debbie Marshall MD PATIENT NAME: Belkis Mccabe DATE: September 27, 2023 TIME: 12:06 PM Source Note - Debbie Marshall MD - 09/27/2023 12:45 PM EST HISTORY AND PHYSICAL Belkis Mccabe 1975 REFERRING PHYSICIAN: Gayla Guaman MD CHIEF COMPLAINT: Consult (colonoscopy) HPI: The patient is a 47 year old male referred for endoscopy. Belkis notes no colon complaints. Patient denies any change in bowel habits, weight changes, blood in stools, black tarry stools or abdominal pain. Denies family history of colon issues. The patient notes no upper GI complaints. Belkis has not undergone prior endoscopy. PAST MEDICAL HISTORY PAST MEDICAL HISTORY Diagnosis Date Back pain Headaches PAST SURGICAL HISTORY PAST SURGICAL HISTORY Procedure Laterality Date INGUINAL HERNIA REPAIR HX Right [facility] PAST SURGICAL HISTORY OF Left knee CURRENT MEDICATIONS No current outpatient medications on file. No current facility-administered medications for this visit. ALLERGIES: Patient has no known allergies. PERSONAL HISTORY: SOCIAL HISTORY Social History Tobacco Use Smoking status: Never Smokeless tobacco: Never Vaping Use Vaping Use: Never used Substance Use Topics Alcohol use: Never Drug use: Never FAMILY HISTORY: FAMILY HISTORY FAMILY HISTORY Problem Relation Age of Onset Asthma Mother other (cancer multiple melanoma) Mother Hyperlipidemia Father REVIEW OF SYMPTOMS: The review of systems data was entered by the nurse and reviewed by pr Nursing Notes: Zoey Mancilla LPN 08/27/2023 3:09 PM Signed REVIEW OF SYSTEMS: General: The patient denies fatigue, denies weight loss, denies weight gain, denies feeling hot, and denies feelings of cold. Eyes: The patient denies glaucoma, denies eye injury/surgery, wears glasses or contacts. Ear/Nose/Throat: The patient denies allergies, denies hayfever, denies ear infections, and denies bloody noses. Cardiovascular: The patient denies chest pain, denies heart disease, denies high blood pressure,denies cardiac stent, denies prior heart attack, denies irregular heart beat, denies high cholesterol, denies poor circulation, denies heart failure, other cardiac issues, denies claudication, denies cold feet, denies peripheral arterial stent. Respiratory: The patient denies tuberculosis, denies pneumonia, denies frequent cough, denies pulmonary embolism, denies shortness of breath, and denies coughing up blood. Gastrointestinal: The patient denies difficulty swallowing, denies acid reflux, denies ulcers, denies vomiting, denies jaundice/hepatitis, denies gallbladder problems, denies black or tarry stools, denies hemorrhoids, denies bleeding from rectum, denies diverticulitis, denies constipation, denies diarrhea, denies loss of stool control, and denies hernias. Kidney/Bladder: The patient denies kidney stones, denies urine infections, and denies bloody urine. Skin: The patient denies a history of skin cancer, denies bleeding/changing moles, and denies a history of skin rash. Neurologic: The patient denies a history of epilepsy/convulsions, notes headaches, denies head/spinal injuries, and denies stroke/TIA. Psychiatric: The patient denies psychiatric medications, denies depression, and denies voices, denies substance abuse. Endocrine: The patient denies thyroid disorders, denies diabetes, and denies hormonal problems. Hematologic: The patient denies a history of bruising, denies bleeding, and denies anemia, denies blood clots. Infections: The patient denies a history of measles and mumps, denies rheumatic fever, and denies sexually transmitted diseases. Musculoskeletal: The patient notes back pain/injury, denies back problems, denies sciatica, denies knee/foot trouble, denies arthritis, or denies gout. When was patient's last Mammogram screening? N/A Last Colonoscopy: none Zoey CharoELIF I have confirmed and edited as necessary, the PFSH and ROS obtained by others. Regine Beck PA-C PHYSICAL EXAMINATION: General: The patient is 47 year old male, well nourished, well hydrated in no acute distress. The patient is oriented to time, place, and person. VITALS: Blood pressure 142/70, pulse 83, temperature 36.1 C (96.9 F), height 185.4 cm (6' 1), weight 94.7 kg (208 lb 12.8 oz), SpO2 97 %. Body mass index is 27.55 kg/m . HEENT: Normal cephalic, ataumatic, pupils are equally round, sclera are anicteric, mucous membranes are moist, oropharynx is clear. Neck has no masses, asymmetry or lymphadenopathy. Respiratory: Clear to auscultation and percussion. Normal respiratory excursion and pattern. Cardiac: Examination is regular rate and rhythm. Normal S1/S2 Abdominal exam: Soft, nontender, with no palpable masses. No hepatosplenomegaly. No palpable hernias. Extremities: no clubbing, cyanosis or edema. No adenopathy. LABORATORY VALUES: As Noted RADIOLOGIC STUDIES: As Noted Assessment IMPRESSION: encounter for screening colonoscopy PLAN: I have reviewed my findings with the surgeon. Will plan for lower endoscopy. We discussed the risks and benefits of the planned endoscopy. I have informed the patient that complications can occur including failure to complete the endoscopy and perforation. The patient had the opportunity to ask questions concerning the planned endoscopy. My staff has also explained the procedure to the patient in understandable terms and has given the patient printed material concerning the procedure. The patient freely consents to surgery. I plan to use golytely bowel preparation Diagnoses: (Z12.11) Encounter for screening for malignant neoplasm of colon (primary encounter diagnosis) Consultation requested by Dr. Guaman for an opinion regarding screening colonoscopy. My final recommendations will be communicated back to the requesting physician by way of shared Medical record or letter to requesting physician via [place] mail. Regine Beck PA-C HISTORY AND PHYSICAL Belkis Mccabe 1975 REFERRING PHYSICIAN: Gayla Guaman MD CHIEF COMPLAINT: Consult (colonoscopy) HPI: The patient is a 47 year old male referred for endoscopy. Belkis notes no colon complaints. Patient denies any change in bowel habits, weight changes, blood in stools, black tarry stools or abdominal pain. Denies family history of colon issues. The patient notes no upper GI complaints. Belkis has not undergone prior endoscopy. PAST MEDICAL HISTORY PAST MEDICAL HISTORY Diagnosis Date Back pain Headaches PAST SURGICAL HISTORY PAST SURGICAL HISTORY Procedure Laterality Date INGUINAL HERNIA REPAIR HX Right [facility] PAST SURGICAL HISTORY OF Left knee CURRENT MEDICATIONS No current outpatient medications on file. No current facility-administered medications for this visit. ALLERGIES: Patient has no known allergies. PERSONAL HISTORY: SOCIAL HISTORY Social History Tobacco Use Smoking status: Never Smokeless tobacco: Never Vaping Use Vaping Use: Never used Substance Use Topics Alcohol use: Never Drug use: Never FAMILY HISTORY: FAMILY HISTORY FAMILY HISTORY Problem Relation Age of Onset Asthma Mother other (cancer multiple melanoma) Mother Hyperlipidemia Father REVIEW OF SYMPTOMS: The review of systems data was entered by the nurse and reviewed by pr Nursing Notes: Zoey MancillaELIF 08/27/2023 3:09 PM Signed REVIEW OF SYSTEMS: General: The patient denies fatigue, denies weight loss, denies weight gain, denies feeling hot, and denies feelings of cold. Eyes: The patient denies glaucoma, denies eye injury/surgery, wears glasses or contacts. Ear/Nose/Throat: The patient denies allergies, denies hayfever, denies ear infections, and denies bloody noses. Cardiovascular: The patient denies chest pain, denies heart disease, denies high blood pressure,denies cardiac stent, denies prior heart attack, denies irregular heart beat, denies high cholesterol, denies poor circulation, denies heart failure, other cardiac issues, denies claudication, denies cold feet, denies peripheral arterial stent. Respiratory: The patient denies tuberculosis, denies pneumonia, denies frequent cough, denies pulmonary embolism, denies shortness of breath, and denies coughing up blood. Gastrointestinal: The patient denies difficulty swallowing, denies acid reflux, denies ulcers, denies vomiting, denies jaundice/hepatitis, denies gallbladder problems, denies black or tarry stools, denies hemorrhoids, denies bleeding from rectum, denies diverticulitis, denies constipation, denies diarrhea, denies loss of stool control, and denies hernias. Kidney/Bladder: The patient denies kidney stones, denies urine infections, and denies bloody urine. Skin: The patient denies a history of skin cancer, denies bleeding/changing moles, and denies a history of skin rash. Neurologic: The patient denies a history of epilepsy/convulsions, notes headaches, denies head/spinal injuries, and denies stroke/TIA. Psychiatric: The patient denies psychiatric medications, denies depression, and denies voices, denies substance abuse. Endocrine: The patient denies thyroid disorders, denies diabetes, and denies hormonal problems. Hematologic: The patient denies a history of bruising, denies bleeding, and denies anemia, denies blood clots. Infections: The patient denies a history of measles and mumps, denies rheumatic fever, and denies sexually transmitted diseases. Musculoskeletal: The patient notes back pain/injury, denies back problems, denies sciatica, denies knee/foot trouble, denies arthritis, or denies gout. When was patient's last Mammogram screening? N/A Last Colonoscopy: none Zoey Mancilla LPN I have confirmed and edited as necessary, the PFSH and ROS obtained by others. Regine Beck PA-C PHYSICAL EXAMINATION: General: The patient is 47 year old male, well nourished, well hydrated in no acute distress. The patient is oriented to time, place, and person. VITALS: Blood pressure 142/70, pulse 83, temperature 36.1 C (96.9 F), height 185.4 cm (6' 1), weight 94.7 kg (208 lb 12.8 oz), SpO2 97 %. Body mass index is 27.55 kg/m . HEENT: Normal cephalic, ataumatic, pupils are equally round, sclera are anicteric, mucous membranes are moist, oropharynx is clear. Neck has no masses, asymmetry or lymphadenopathy. Respiratory: Clear to auscultation and percussion. Normal respiratory excursion and pattern. Cardiac: Examination is regular rate and rhythm. Normal S1/S2 Abdominal exam: Soft, nontender, with no palpable masses. No hepatosplenomegaly. No palpable hernias. Extremities: no clubbing, cyanosis or edema. No adenopathy. LABORATORY VALUES: As Noted RADIOLOGIC STUDIES: As Noted Assessment IMPRESSION: encounter for screening colonoscopy PLAN: I have reviewed my findings with the surgeon. Will plan for lower endoscopy. We discussed the risks and benefits of the planned endoscopy. I have informed the patient that complications can occur including failure to complete the endoscopy and perforation. The patient had the opportunity to ask questions concerning the planned endoscopy. My staff has also explained the procedure to the patient in understandable terms and has given the patient printed material concerning the procedure. The patient freely consents to surgery. I plan to use golytely bowel preparation Diagnoses: (Z12.11) Encounter for screening for malignant neoplasm of colon (primary encounter diagnosis) Consultation requested by Dr. Guaman for an opinion regarding screening colonoscopy. My final recommendations will be communicated back to the requesting physician by way of shared Medical record or letter to requesting physician via [place] mail. Regine Beck PA-C documented in this encounter [facility] 08-27-2023 Note HNO ID: [id number] Author: Regine Beck PA-C Service: ? Author Type: Physician Youth Support Worker Type: Progress Notes Filed: 09/24/2023 2:13 PM Note Text: HISTORY AND PHYSICAL Belkis Lealler 1975 REFERRING PHYSICIAN: Gayla Guaman MD CHIEF COMPLAINT: Consult (colonoscopy) HPI: The patient is a 47 year old male referred for endoscopy. Belkis notes no colon complaints. Patient denies any change in bowel habits, weight changes, blood in stools, black tarry stools or abdominal pain. Denies family history of colon issues. The patient notes no upper GI complaints. Belkis has not undergone prior endoscopy. PAST MEDICAL HISTORY Diagnosis Date Back pain Headaches PAST SURGICAL HISTORY Procedure Laterality Date INGUINAL HERNIA REPAIR HX Right [facility] PAST SURGICAL HISTORY OF Left knee No current outpatient medications on file. No current facility-administered medications for this visit. ALLERGIES: Patient has no known allergies. PERSONAL HISTORY: Social History Tobacco Use Smoking status: Never Smokeless tobacco: Never Vaping Use Vaping Use: Never used Substance Use Topics Alcohol use: Never Drug use: Never FAMILY HISTORY: FAMILY HISTORY Problem Relation Age of Onset Asthma Mother other (cancer multiple melanoma) Mother Hyperlipidemia Father REVIEW OF SYMPTOMS: The review of systems data was entered by the nurse and reviewed by me Nursing Notes: Zoey Mancilla LPN 08/27/2023 3:09 PM Signed REVIEW OF SYSTEMS: General: The patient denies fatigue, denies weight loss, denies weight gain, denies feeling hot, and denies feelings of cold. Eyes: The patient denies glaucoma, denies eye injury/surgery, wears glasses or contacts. Ear/Nose/Throat: The patient denies allergies, denies hayfever, denies ear infections, and denies bloody noses. Cardiovascular: The patient denies chest pain, denies heart disease, denies high blood pressure,denies cardiac stent, denies prior heart attack, denies irregular heart beat, denies high cholesterol, denies poor circulation, denies heart failure, other cardiac issues, denies claudication, denies cold feet, denies peripheral arterial stent. Respiratory: The patient denies tuberculosis, denies pneumonia, denies frequent cough, denies pulmonary embolism, denies shortness of breath, and denies coughing up blood. Gastrointestinal: The patient denies difficulty swallowing, denies acid reflux, denies ulcers, denies vomiting, denies jaundice/hepatitis, denies gallbladder problems, denies black or tarry stools, denies hemorrhoids, denies bleeding from rectum, denies diverticulitis, denies constipation, denies diarrhea, denies loss of stool control, and denies hernias. Kidney/Bladder: The patient denies kidney stones, denies urine infections, and denies bloody urine. Skin: The patient denies a history of skin cancer, denies bleeding/changing moles, and denies a history of skin rash. Neurologic: The patient denies a history of epilepsy/convulsions, notes headaches, denies head/spinal injuries, and denies stroke/TIA. Psychiatric: The patient denies psychiatric medications, denies depression, and denies voices, denies substance abuse. Endocrine: The patient denies thyroid disorders, denies diabetes, and denies hormonal problems. Hematologic: The patient denies a history of bruising, denies bleeding, and denies anemia, denies blood clots. Infections: The patient denies a history of measles and mumps, denies rheumatic fever, and denies sexually transmitted diseases. Musculoskeletal: The patient notes back pain/injury, denies back problems, denies sciatica, denies knee/foot trouble, denies arthritis, or denies gout. When was patient's last Mammogram screening? N/A Last Colonoscopy: none Zoey Mancilla LPN I have confirmed and edited as necessary, the PFSH and ROS obtained by others. Regine Beck PA-C PHYSICAL EXAMINATION: General: The patient is 47 year old male, well nourished, well hydrated in no acute distress. The patient is oriented to time, place, and person. VITALS: Blood pressure 142/70, pulse 83, temperature 36.1 ?C (96.9 ?F), height 185.4 cm (6' 1), weight 94.7 kg (208 lb 12.8 oz), SpO2 97 %. Body mass index is 27.55 kg/m?. HEENT: Normal cephalic, ataumatic, pupils are equally round, sclera are anicteric, mucous membranes are moist, oropharynx is clear. Neck has no masses, asymmetry or lymphadenopathy. Respiratory: Clear to auscultation and percussion. Normal respiratory excursion and pattern. Cardiac: Examination is regular rate and rhythm. Normal S1/S2 Abdominal exam: Soft, nontender, with no palpable masses. No hepatosplenomegaly. No palpable hernias. Extremities: no clubbing, cyanosis or edema. No adenopathy. LABORATORY VALUES: As Noted RADIOLOGIC STUDIES: As Noted Assessment IMPRESSION: encounter for screening colonoscopy PLAN: I have reviewed my findings with the surgeon. Will plan fo (more content not included)... [facility] 08-27-2023 History of Present illness Narrative HISTORY AND PHYSICAL Belkis Mccabe 1975 REFERRING PHYSICIAN: Gayla Guaman MD CHIEF COMPLAINT: Consult (colonoscopy) HPI: The patient is a 47 year old male referred for endoscopy. Belkis notes no colon complaints. Patient denies any change in bowel habits, weight changes, blood in stools, black tarry stools or abdominal pain. Denies family history of colon issues. The patient notes no upper GI complaints. Belkis has not undergone prior endoscopy. PAST MEDICAL HISTORY Diagnosis Date Back pain Headaches PAST SURGICAL HISTORY Procedure Laterality Date INGUINAL HERNIA REPAIR HX Right [facility] PAST SURGICAL HISTORY OF Left knee No current outpatient medications on file. No current facility-administered medications for this visit. ALLERGIES: Patient has no known allergies. PERSONAL HISTORY: Social History Tobacco Use Smoking status: Never Smokeless tobacco: Never Vaping Use Vaping Use: Never used Substance Use Topics Alcohol use: Never Drug use: Never FAMILY HISTORY: FAMILY HISTORY Problem Relation Age of Onset Asthma Mother other (cancer multiple melanoma) Mother Hyperlipidemia Father REVIEW OF SYMPTOMS: The review of systems data was entered by the nurse and reviewed by pr Nursing Notes: Zoey MancillaELIF 08/27/2023 3:09 PM Signed REVIEW OF SYSTEMS: General: The patient denies fatigue, denies weight loss, denies weight gain, denies feeling hot, and denies feelings of cold. Eyes: The patient denies glaucoma, denies eye injury/surgery, wears glasses or contacts. Ear/Nose/Throat: The patient denies allergies, denies hayfever, denies ear infections, and denies bloody noses. Cardiovascular: The patient denies chest pain, denies heart disease, denies high blood pressure,denies cardiac stent, denies prior heart attack, denies irregular heart beat, denies high cholesterol, denies poor circulation, denies heart failure, other cardiac issues, denies claudication, denies cold feet, denies peripheral arterial stent. Respiratory: The patient denies tuberculosis, denies pneumonia, denies frequent cough, denies pulmonary embolism, denies shortness of breath, and denies coughing up blood. Gastrointestinal: The patient denies difficulty swallowing, denies acid reflux, denies ulcers, denies vomiting, denies jaundice/hepatitis, denies gallbladder problems, denies black or tarry stools, denies hemorrhoids, denies bleeding from rectum, denies diverticulitis, denies constipation, denies diarrhea, denies loss of stool control, and denies hernias. Kidney/Bladder: The patient denies kidney stones, denies urine infections, and denies bloody urine. Skin: The patient denies a history of skin cancer, denies bleeding/changing moles, and denies a history of skin rash. Neurologic: The patient denies a history of epilepsy/convulsions, notes headaches, denies head/spinal injuries, and denies stroke/TIA. Psychiatric: The patient denies psychiatric medications, denies depression, and denies voices, denies substance abuse. Endocrine: The patient denies thyroid disorders, denies diabetes, and denies hormonal problems. Hematologic: The patient denies a history of bruising, denies bleeding, and denies anemia, denies blood clots. Infections: The patient denies a history of measles and mumps, denies rheumatic fever, and denies sexually transmitted diseases. Musculoskeletal: The patient notes back pain/injury, denies back problems, denies sciatica, denies knee/foot trouble, denies arthritis, or denies gout. When was patient's last Mammogram screening? N/A Last Colonoscopy: none Zoey Mancilla LPN I have confirmed and edited as necessary, the PFSH and ROS obtained by others. Regine Beck PA-C PHYSICAL EXAMINATION: General: The patient is 47 year old male, well nourished, well hydrated in no acute distress. The patient is oriented to time, place, and person. VITALS: Blood pressure 142/70, pulse 83, temperature 36.1 C (96.9 F), height 185.4 cm (6' 1), weight 94.7 kg (208 lb 12.8 oz), SpO2 97 %. Body mass index is 27.55 kg/m . HEENT: Normal cephalic, ataumatic, pupils are equally round, sclera are anicteric, mucous membranes are moist, oropharynx is clear. Neck has no masses, asymmetry or lymphadenopathy. Respiratory: Clear to auscultation and percussion. Normal respiratory excursion and pattern. Cardiac: Examination is regular rate and rhythm. Normal S1/S2 Abdominal exam: Soft, nontender, with no palpable masses. No hepatosplenomegaly. No palpable hernias. Extremities: no clubbing, cyanosis or edema. No adenopathy. LABORATORY VALUES: As Noted RADIOLOGIC STUDIES: As Noted Assessment IMPRESSION: encounter for screening colonoscopy PLAN: I have reviewed my findings with the surgeon. Will plan for lower endoscopy. We discussed the risks and benefits of the planned endoscopy. I have informed the patient that complications can occur including failure to complete the endoscopy and perforation. The patient had the opportunity to ask questions concerning the planned endoscopy. My staff has also explained the procedure to the patient in understandable terms and has given the patient printed material concerning the procedure. The patient freely consents to surgery. I plan to use golytely bowel preparation Diagnoses: (Z12.11) Encounter for screening for malignant neoplasm of colon (primary encounter diagnosis) Consultation requested by Dr. Guaman for an opinion regarding screening colonoscopy. My final recommendations will be communicated back to the requesting physician by way of shared Medical record or letter to requesting physician via US mail. Regine Beck PA-C documented in this encounter [facility] 08-27-2023 Nurse Note REVIEW OF SYSTEMS: General: The patient denies fatigue, denies weight loss, denies weight gain, denies feeling hot, and denies feelings of cold. Eyes: The patient denies glaucoma, denies eye injury/surgery, wears glasses or contacts. Ear/Nose/Throat: The patient denies allergies, denies hayfever, denies ear infections, and denies bloody noses. Cardiovascular: The patient denies chest pain, denies heart disease, denies high blood pressure,denies cardiac stent, denies prior heart attack, denies irregular heart beat, denies high cholesterol, denies poor circulation, denies heart failure, other cardiac issues, denies claudication, denies cold feet, denies peripheral arterial stent. Respiratory: The patient denies tuberculosis, denies pneumonia, denies frequent cough, denies pulmonary embolism, denies shortness of breath, and denies coughing up blood. Gastrointestinal: The patient denies difficulty swallowing, denies acid reflux, denies ulcers, denies vomiting, denies jaundice/hepatitis, denies gallbladder problems, denies black or tarry stools, denies hemorrhoids, denies bleeding from rectum, denies diverticulitis, denies constipation, denies diarrhea, denies loss of stool control, and denies hernias. Kidney/Bladder: The patient denies kidney stones, denies urine infections, and denies bloody urine. Skin: The patient denies a history of skin cancer, denies bleeding/changing moles, and denies a history of skin rash. Neurologic: The patient denies a history of epilepsy/convulsions, notes headaches, denies head/spinal injuries, and denies stroke/TIA. Psychiatric: The patient denies psychiatric medications, denies depression, and denies voices, denies substance abuse. Endocrine: The patient denies thyroid disorders, denies diabetes, and denies hormonal problems. Hematologic: The patient denies a history of bruising, denies bleeding, and denies anemia, denies blood clots. Infections: The patient denies a history of measles and mumps, denies rheumatic fever, and denies sexually transmitted diseases. Musculoskeletal: The patient notes back pain/injury, denies back problems, denies sciatica, denies knee/foot trouble, denies arthritis, or denies gout. When was patient's last Mammogram screening? N/A Last Colonoscopy: none Zoey Mancilla LPN documented in this encounter [facility] 03-01-2023 History of Present illness Narrative Department of Neurological Sciences Impression: Diagnosis Plan 1. Nonintractable headache, unspecified chronicity pattern, unspecified headache type MR brain w and wo contrast Sedimentation rate, automated TSH Sedimentation rate, automated TSH Presents with new daily headache over the last 2 weeks that is worsened by physical exertion and orgasm. CTA/MRA noncontributory. Plan: Check ESR MRI brain If no secondary etiology is identified then may treat with naproxen prn prior to physical exertion/sexual intercourse. Orders Placed This Encounter Procedures MR brain w and wo contrast Standing Status: Future Standing Expiration Date: 03/01/2024 Sedimentation rate, automated Standing Status: Future Number of Occurrences: 1 Standing Expiration Date: 03/01/2024 TSH Standing Status: Future Number of Occurrences: 1 Standing Expiration Date: 03/01/2024 CHIEF COMPLAINT: Chief Complaint Patient presents with New Patient Headache The patient states that 02/17/23 he started with headaches- no injury to the head. He states that he was doing extreme exercise and then ended up having an extreme headache. Since then has had constant headaches. Has headaches with orgasms. HISTORY OF PRESENT ILLNESS: The patient is a 47 y.o. male without significant past medical history who presents with headaches. He reports that he was doing high density 7 minute workout on 02/17/2023 when he developed severe headache over his entire head that lasted for several minutes and then settled down to a constant discomfort over the left bahai that he rates as 1 out of 10 in severity and that is constant and nonthrobbing. He also recalls having significant worsening of headache immediately after orgasm, severe headache lasted for approximately 1 minute and then settled down. He is not aware of dietary, olfactory triggers. Headaches are typically relieved by sleep and rest. He affirms that he sleeps sleep and hydration. He has not used any as needed medication. His work-up included CT/CTA of the head and MRA of the head - no acute process or aneurysm was identified. He denies jaw claudication, transient visual obscurations, pain with valsalva, other focal neurological symptoms. Past Medical History: No past medical history on file. Past Surgical History: No past surgical history on file. Medications: No current outpatient medications on file. No current facility-administered medications for this visit. Allergies: Patient has no known allergies. Social History: Social History Socioeconomic History Marital status: Unknown Spouse name: Not on file Number of children: Not on file Years of education: Not on file Highest education level: Not on file Occupational History Not on file Tobacco Use Smoking status: Never Smokeless tobacco: Never Vaping Use Vaping Use: Never used Substance and Sexual Activity Alcohol use: Never Drug use: Never Sexual activity: Not on file Other Topics Concern Not on file Social History Narrative Not on file Social Determinants of Health Financial Resource Strain: Not on file Food Insecurity: Not on file Transportation Needs: Not on file Physical Activity: Not on file Stress: Not on file Social Connections: Not on file Intimate Partner Violence: Not on file Housing Stability: Not on file Family History: No family history on file. REVIEW OF SYSTEMS: Positive for headache No fevers, significant weight loss, hearing loss, tinnitus, dysphagia, photosensitivity, visual disturbances, chest tightness, chest pain, shortness of breath, palpitations, abdominal pain, nausea, heat intolerance, dysuria, joint pain, muscle pain, imbalance, dizziness, seizures, confusion, anxiety, depression. PHYSICAL EXAM: Vitals: BP 138/77 (BP Location: Right arm, Patient Position: Sitting) Pulse 66 Ht 6' 1 (1.854 m) Wt 200 lb 9.6 oz (91 kg) BMI 26.47 kg/m General: The patient was well developed, in no acute distress. HEENT: Normocephalic, atraumatic. Conjunctiva, lids, pupils, and irises clear. Oral mucosa is moist. Neck: Supple. No carotid bruits. Full range of motion. No nuchal rigidity or neck tenderness to palpation. Cardiovascular: Regular rate and rhythm. No murmurs. Arms and legs are warm and well-perfused. No clubbing, cyanosis or edema. Lungs: Clear to auscultation. Abdomen: Soft, non-tender, non-distended. Positive bowel sounds. Skin (Restricted to face and distal upper and lower extremities): Unremarkable. Musculoskeletal: No tenderness observed. Neurological Examination: Mental Status: Patient is currently awake, alert, and oriented to person, place, and time. Able to state the reason for today's visit and can recall events leading up to this visit. Speech is fluent without any evidence of dysphasia. Cranial Nerves: II Optic: Pupils equal and reactive. Visual ayala full. No papilledema appreciated on fundoscopic exam. III Oculomotor, IV Trochlear, Abducens: Extraocular movements intact. No nystagmus. No gaze palsy or paresis. No ptosis. V Trigeminal: Facial sensation normal and symmetric in V1-V3 distribution. VII Facial: Facial strength normal and symmetric. VIII Vestibulocochlear: Hearing intact bilaterally. IX Glossopharyngeal / X Vagus: Palate elevates symmetrically and uvula midline. XI Accessory: Shoulder shrug symmetric. XII Hypoglossal: Tongue midline with normal bilateral strength. Motor Examination: Full 5/5 strength in bilateral upper and lower extremities to confrontation. Normal muscle bulk. No obvious atrophy or fasciculations seen. No pronator drift. Normal tone. No rigidity. No tremor. Sensory Examination: Sensation intact to light touch, pinprick, temperature, and vibration bilaterally throughout. No extinction to double simultaneous stimulation. Reflexes: 2+ reflexes in biceps, triceps, brachioradialis, patella, and Achilles bilaterally. No clonus. Cerebellar Examination: There is no overt dysmetria nor dysdiadochokinesia with [id number] or rapid alternating movements. Gait Examination: No difficulty standing from sitting position. Steady and symmetrical gait with normal stride length, arm swing, and turning without instability. documented in this encounter [facility] Evaluation + Plan note No data available for this section [facility] Evaluation note Diagnosis Nonintractable headache, unspecified chronicity pattern, unspecified headache type- Primary [facility] Diagnosis Nonintractable headache, unspecified chronicity pattern, unspecified headache type [facility] Diagnosis Encounter for screening for malignant neoplasm of colon- Primary Special screening for malignant neoplasms, colon documented in this encounter [facility] note* Diagnosis Screening for colon cancer- Primary Special screening for malignant neoplasms, colon Special screening for malignant neoplasms, colon documented in this encounter [facility] Discharge instructions No data available for this section [facility] Progress note No data available for this section [facility] Reason for referral (narrative)* Outpatient Procedure (Routine) - Closed Specialty Diagnoses / Procedures Referred By Carlos do Referred To Contact [facility] Diagnoses Special screening for malignant neoplasms, colon Procedures COLONOSCOPY SCREENING COLONOSCOPY FLX DX W/COLLJ SPEC WHEN Debbie Vasquez MD [address] [place] [address] [address] Referral ID Status Reason Start Date Expiration Date V isits Requested Visits Authorized [id number] Closed Auto-Generate d Referral 08/31/2023 08/27/2024 1 1 [facility] for visit Narrative* Outpatient Procedure (Routine) - Closed Specialty Diagnoses / Procedures Referred By Carlos do Referred To Contact [facility] Diagnoses Special screening for malignant neoplasms, colon Procedures COLONOSCOPY SCREENING COLONOSCOPY FLX DX W/COLLJ SPEC WHEN Debbie Vasquez MD [address] [place] [address] [facility] [address] [place] [address] Referral ID Status Reason Start Date Expiration Date V isits Requested Visits Authorized [id number] Closed Auto-Generate d Referral 08/31/2023 08/27/2024 1 1 [facility] Summary Purpose Family History No Family History Records FoundNo Family History Records FoundNo Family History Records FoundNo Family History Records Found No data available for this section No Family History Records FoundNo Family History Records Found Advance Directives No Advanced Directives Records FoundNo Advanced Directives Records FoundNo Advanced Directives Records FoundNo Advanced Directives Records FoundNo Advanced Directives Records FoundNo Advanced Directives Records Found Reason for Referral Specialty Diagnoses / Procedures Referred By Carlos do Referred To Contact Radiology Diagnoses Nonintractable headache, unspecified chronicity pattern, unspecified headache type Procedures MR brain w and wo contrast Ramsey Hess MD [address] [place] [address] Referral ID Status Reason Start Date Expiration Date V isits Requested Visits Authorized [id number] Pending Review 03/01/2023 08/28/2023 1 1 Referral ID Status Reason Start Date Expiration Date Visits Re quested Visits Authorized [id number] Closed 03/01/2023 08/28/2023 1 1 Medications Administered Section Inactive Administered Medications - up to 3 most recent administrations Medication Order MAR Action Action Date Dose Rate Site diphenhydrAMINE 12.5-50 mg injection (BENADRYL) 12.5-50 mg, INTRAVENOUS, DIRECTED, Starting on Wed09/27/23 at 1300, Until Wed09/27/23 at 1659, DOSING DIRECTED BY PHYSICIAN FOR PROCEDURAL SEDATION ONLY, Intraprocedure Given 09/27/2023 12:48 PM EST 50 mg fentaNYL 50 mcg/mL 25-100 mcg injection (SUBLIMAZE) 25-100 mcg, INTRAVENOUS, DIRECTED, Starting on Wed09/27/23 at 1300, Until Wed09/27/23 at 1659, DOSING DIRECTED BY PHYSICIAN FOR PROCEDURAL SEDATION ONLY, Intraprocedure Given 09/27/2023 12:56 PM EST 50 mcg Given 09/27/2023 12:46 PM EST 50 mcg lactated ringers iv infusion 75 mL/hr, INTRAVENOUS, CONTINUOUS, Starting on Wed09/27/23 at 1230, Until Wed09/27/23 at 1320, Preprocedure New Bag/Syringe/Bottle 09/27/2023 12:15 PM EST 75 mL/hr 75 mL/hr midazolam 1-5 mg injection (VERSED) 1-5 mg, INTRAVENOUS, DIRECTED, Starting on Wed09/27/23 at 1300, Until Wed09/27/23 at 1659, DOSING DIRECTED BY PHYSICIAN FOR PROCEDURAL SEDATION ONLY, Intraprocedure Given 09/27/2023 12:56 PM EST 2 mg Given 09/27/2023 12:52 PM EST 1 mg Given 09/27/2023 12:50 PM EST 2 mg Additional Source Comments (unrecognized sect ion and content) No Status Records FoundNo Status Records FoundNo Status Records FoundNo Status Records FoundNo Status Records FoundNo Status Records Found INFORMATION SOURCE (unrecogn ized section and content) DATE CREATED AUTHOR 12/08/2021 [facility] DATE CREATED AUTHOR AUTHOR'S ORGANIZ ATION 02/18/2023 [facility] DATE CREATED AUTHOR AUTHOR'S ORGANIZ ATION 03/03/[address] [facility] DATE CREATED AUTHOR AUTHOR'S ORGANIZ ATION 04/05/2023 [facility] [facility] DATE CREATED AUTHOR AUTHOR'S ORGANIZ ATION 08/09/2023 [facility] ([place] DATE CREATED AUTHOR AUTHOR'S ORGANIZ ATION 09/29/2023 [facility] Reason for Visit (unrecogniz ed section and content) Reason Comments New Patient Headache The patient states t hat 02/17/23 he started with headaches- no injury to the head. He states that he was doing extreme exercise and then ended up having an extreme headache. Since then has had constant headaches. Has headaches with orgasms. Specialty Diagnoses / Procedures Referred By Carlos do Referred To Contact Radiology Diagnoses Nonintractable headache, unspecified chronicity pattern, unspecified headache type Procedures MR brain w and wo Ramsey Servin MD [address] [place] [address] Referral ID Status Reason Start Date Expiration Date Visits Re quested Visits Authorized [id number] Closed 03/01/2023 08/28/2023 1 1 Reason Comments Consult colonoscopy Care Teams (unrecognized sec tion and content) [employer]ation Technician Relationship Specialty Start Date End Date Tracy Aviles [address] [place] [address] PCP - General Family Medicine 03/01/23 P[employer] And Installation Technician Relationship Specialty Start Date End Date Stefan Tracy Jesse [address] [place] [address] PCP - General Family Medicine 03/01/23 Pv [employer] And Installation Technician Relationship Specialty Start Date End Date Gayla Guaman MD [address] [place], [place] [id number] PCP - General Internal Medicine 08/12/23 Pv [employer] And Installation Technician Relationship Specialty Start Date End Date Gayla Guaman MD [address] [place], [place] [id number] PCP - General Internal Medicine 08/12/23 Source Comments (unrecognize d section and content) In the event this informatio n is protected by the Federal Confidentiality of Alcohol and Drug Abuse Patient Records regulations: The Federal rules restrict any use of the information to criminally investigate or prosecute any alcohol or drug abuse patient.[facility] the event this information is protected by the Federal Confidentiality of Alcohol and Drug Abuse Patient Records regulations: The Federal rules restrict any use of the information to criminally investigate or prosecute any alcohol or drug abuse patient.[facility] FOR RECORDS PERTAINING TO PATIENTS WHO ARE OR HAVE BEEN ENROLLED IN A CHEMICAL DEPENDENCY/SUBSTANCEABUSE PROGRAM, SOME INFORMATION MAY BE OMITTED. This clinical summary was aggregated from multiple sources. Caution should be exercised in using it in the provision of clinical care. This summary normalizes information from multiple sources, and as a consequence, information in this document may materially change the coding, format and clinical context of patient data. In addition, data may be omitted in some cases. CLINICAL DECISIONS SHOULD BE BASED ON THE PRIMARY CLINICAL RECORDS. [facility]. provides no warranty or guarantee of the accuracy or completeness of information in this document.
[2025-07-07 10:25] LABS: Hematocrit 48.3 % (40-54); Hemoglobin 16.1 g/dL (13.0-16.5); Immature Granulocytes Count 0.080 X10^3/uL (0.0-0.0); Mean Corp Hgb Conc 33.3 g/dL (32-36); Mean Corpuscular Volume 84.3 fL (80-94); Mean Platelet Vol. 10.3 fl (6.2-12.0); NRBC Flagged by Analyzer 0 % (0-5); Platelet Count 275 K/mm3 (150-450); RBC Distribution Width CV 12.6 % (11.6-14.6); RBC Distribution Width SD 38.5 fl (35.1-43.9); Red Blood Count 5.73 M/mm3 (4.6-6.2); White Blood Count 6.8 K/mm3 (4.4-11.0)
[2025-07-07 11:05] LABS: AST(SGOT) 42 U/L (<=37); Alanine Aminotransfer ALT/SGPT 77 U/L (<=46); Albumin, Serum 4.3 g/dL (3.5-5.0); Alkaline Phosphatase 63 U/L (40-129); Anion Gap 9 (5-15); BUN 14 mg/dL (4-19); BUN/Creat Ratio 12.6 RATIO (10-20); Calcium,Total 9.0 mg/dL (7.6-11.0); Carbon Dioxide 25.3 mmol/L (21.0-32.0); Chloride 105 mmol/L (98-108); Cholesterol 174 mg/dL (<=200); Globulin 2.7 g/dL (2.2-4.2); Glucose 93 mg/dL (70-99); Low Density Lipoprotein Calc. 109 mg/dL; Potassium 4.5 mmol/L (3.3-5.1); Triglycerides 60 mg/dL; Very Low Density Lipoprotein 12 mg/dL (5-40); cholesterol:hdl ratio screen 3.26
== END | disposition home or self-care (01) ==
LOC: LAB 08:57
PROVIDERS: PCP Family Medicine; Referring Provider Family Medicine; Visit Provider Family Medicine
DX: Z13.1 Encounter for screening for diabetes mellitus (principal); R53.83 Other fatigue; Z13.220 Encounter for screening for lipoid disorders
CPT/HCPCS: 36415; 80053; 80061; 84443; 85025